=== PATIENT | female | born 1980 | race Caucasian/White ===

== ENCOUNTER 2016-11-01 21:40 | Inpatient (IN) | payer SELFPAY ==
--- NOTE | ~2016-11-01 | HP ---
History And Physical [place] [address] [place]. [address] NAME: YUMIKO PEREYRA : [birth year] STATUS : ADM IN [facility]#: [id number] AGE: 35 ADM/REG DATE : 11/02/16 MR#: [id number] REPORT SERV DATE: 11/02/16 DICTATED BY: MARIA D MENDOZA DATE: 11/02/16 REPORT STATUS : Draft TRANSCRIBED BY: MODLizandro DATE: 11/02/16 DATE OF ADMISSION: 11/02/2016 REASON FOR ADMISSION: Acute respiratory failure. HISTORY OF PRESENT ILLNESS: Ms. Pereyra is well known to our group from multiple hospitalizations for acute diabetic ketoacidosis. She has poor medical compliance, poor self-care, multiple hospitalizations, multiple emergency room visits because of her diabetes. She came in feeling poorly, complaining of pain but was not in DKA. She had an IV started, was being worked up. Went to the restroom and then was found passed out in the restroom with some stridor, was intubated and placed on mechanical ventilation. She has had no recent fever, chills, night sweats, or new respiratory tract infections. She has had no other specific complaints leading up to the intubation. PAST MEDICAL HISTORY: Significant for diabetic ketoacidosis, poor medical compliance, poor self-care, narcotic dependence. SOCIAL HISTORY: Significant for tobacco abuse of a pack a day. No alcohol abuse. REVIEW OF SYSTEMS: Review of 10 systems could not be obtained, but it was significant for what was noted above. PHYSICAL EXAMINATION: GENERAL: On exam, she appears older than stated age. Chronically ill-appearing, sedated, intubated on mechanical ventilation. HEENT: Normocephalic and atraumatic. NECK: Supple. No lymphadenopathy. No JVD. CHEST: Symmetric with good expansion bilaterally. She has coarse breath sounds. CARDIOVASCULAR: She has S1 and S2 which are regular rate and rhythm. ABDOMEN: Benign. She has no edema. No clubbing. No cyanosis. ASSESSMENT AND PLAN: 1. Respiratory failure. The patient has acute respiratory failure and appears to have been over self-medicated since she had come in with poor mental status and became worse when she was by herself in the restroom. She also had significant amount of pill fragments in her stomach when she had NG tube placed. With that in mind, she will stay on mechanical ventilation. She apparently had some transient stridor in the emergency department but whether she was having trouble with her secretions because of the over self medications, unclear, since airway was described as normal by the emergency department staff at the time of intubation. 2. She is hyperglycemic, so we started her on an insulin drip, though she is actually not in diabetic ketoacidosis at this time and we will monitor her metabolic status. She will be started on DVT and gastrointestinal prophylaxis. Care was discussed with the emergency department staff. There was no family available at this time. History And Physical [address] [place]. [address] NAME: YUIMKO PEREYRA : [birth year] STATUS : ADM IN [facility]#: [id number] AGE: 35 ADM/REG DATE : 11/02/16 MR#: [id number] REPORT SERV DATE: 11/02/16 DICTATED BY: MARIA D MENDOZA DATE: 11/02/16 REPORT STATUS : Draft TRANSCRIBED BY: GALILEA DATE: 11/02/16 THO/GALILEA Maria D Mendoza M.D. / [id number] CC: Danita Lentz MINDI
--- NOTE | ~2016-11-01 | OP ---
Record Of Operation [address] [place]. [address] NAME: YUMIKO MILAN : [birth year] STATUS : ADM IN PAT#: [id number] AGE: 35 ADM/REG DATE : 11/02/16 MR#: [id number] REPORT SERV DATE: 11/13/16 DICTATED BY: DAVID CHAVEZ DATE: 11/13/16 REPORT STATUS : Draft TRANSCRIBED BY: MODL DATE: 11/13/16 DATE OF PROCEDURE: 11/13/2016 PREOPERATIVE DIAGNOSES: 1. Respiratory failure. 2. Ventilator dependence. POSTOPERATIVE DIAGNOSES: 1. Respiratory failure. 2. Ventilator dependence. PROCEDURE: 1. Tracheostomy, #8 cuffed Shiley trach tube. 2. Rigid bronchoscopy. SURGEON: David Chavez M.D. ANESTHESIA: General. COMPLICATIONS: None. COUNTS: All counts correct following the procedure. ESTIMATED BLOOD LOSS: Minimal. PREOPERATIVE INFORMED CONSENT: We are unable to discuss risks and benefits of surgery with the patient's family because they are unavailable. Then two-doctor consent was performed due to medical necessity. DETAILS OF PROCEDURE: The patient was brought to the operating suite and placed on the operating table in the supine position. General endotracheal anesthesia was initiated through the previously existing endotracheal tube. The neck was cleaned, prepped and draped in the usual sterile fashion. A transverse incision was marked out and then using electrocautery, an incision was made with sharp dissection down through the subcutaneous tissues down to the strap muscles. The midline fascia was divided and the strap muscles were retracted laterally. The thyroid isthmus was dissected off the anterior tracheal wall and divided using electrocautery, taking care to cauterize all surrounding vessels. A peanut pusher was used to clean off the anterior tracheal wall and the space between the second and third tracheal ring was scored using electrocautery. A #15-blade scalpel was used to perform tracheostomy. An inferior flap was created using curved Arellano scissors and a stay suture was placed on the lower tracheal flap. The endotracheal tube was moved above the tracheostomy site and a #8 cuffed Shiley trach tube was placed through the tracheostomy site without difficulty. The endotracheal tube was removed. The tracheostomy tube was then reconnected to the Record Of [facility] [address] [facility] [place]. [address] NAME: YUMIKO MILAN : [birth year] STATUS : ADM IN PAT#: [id number] AGE: 35 ADM/REG DATE : 11/02/16 MR#: [id number] REPORT SERV DATE: 11/13/16 DICTATED BY: DAVID CHAVEZ DATE: 11/13/16 REPORT STATUS : Draft TRANSCRIBED BY: GALILEA DATE: 11/13/16 ventilator and the patient was noted to have good CO2 return and good breath sounds bilaterally. The tracheostomy tube was then sutured to the skin using 2-0 silk suture and a Velcro trach tie. The patient was taken to the Intensive Care Unit in stable condition. Using a GlideScope, intubating scope to visualize the larynx, she is noted to have severe aryepiglottic fold edema. Using a 0-degree, Santoyo rachel was placed and used to take pictures of the glottic level, noted to have severe posterior arytenoid edema and aryepiglottic fold edema, the subglottic trachea noted to have some anterior subglottic edema. 1 cm below the cords, the trachea appeared normal, down to the level of the trach site, the scope was then removed. The patient was taken to medical intensive care unit in stable condition. JJames/GALILEA David Chavez M.D. / [id number] CC: Danita Lentz MINDI
--- NOTE | ~2016-11-01 | CN ---
Consultation Report [place] [id number] [place]. [address] NAME: YUMIKO PEREYRA : [birth year] STATUS : ADM IN [facility]#: [id number] AGE: 35 ADM/REG DATE : 11/02/16 MR#: [id number] REPORT SERV DATE: 11/07/16 DICTATED BY: DAVID CHAVEZ DATE: 11/06/16 REPORT STATUS : Draft TRANSCRIBED BY: MODL DATE: 11/06/16 CONSULTATION DATE OF CONSULTATION: 11/06/2016 REASON FOR CONSULTATION: Stridor. HISTORY OF PRESENT ILLNESS: Ms Pereyra is a 35-year-old female, admitted to the hospital on 11/02/2016 due to acute respiratory failure. She has had multiple hospitalizations for acute diabetic ketoacidosis, poor medical compliance, poor self-care, multiple hospitalizations. She was in the emergency room when in the middle of being worked up went to the restroom and was found passed out in the restroom with stridor and was intubated and placed on mechanical ventilation. Despite attempt to extubate during hospitalization, most recent extubation resulted in acute shortness of breath and stridor requiring re-intubation. I have been called to see the patient regarding tracheostomy for long-term ventilator management. PAST MEDICAL HISTORY: Diabetic ketoacidosis, poor medical compliance, poor self-care, and narcotic dependence, and hepatitis C. SOCIAL HISTORY: Tobacco abuse of 1 pack a day. No alcohol abuse, but positive for narcotic dependence and abuse. PHYSICAL EXAMINATION: GENERAL: She has been intubated, sedated, ill appearing. HEENT: Both ears are clear. Nose is clear. ABDOMEN: Soft. Oral cavity/oropharynx; endotracheal tube is in place. NECK: Supple. No palpable adenopathy or masses. No thyromegaly. IMPRESSION: Stridor postextubation likely secondary to vocal cord edema. RECOMMENDATIONS: Tracheostomy. PLAN: We will discuss with patient's family to see if they want to proceed with tracheostomy, and we will schedule at some point in the future. SPARKLE/GALILEA David Chavez M.D. Consultation Report [place] [id number] [address] NAME: YUMIKO PEREYRA : [birth year] STATUS : ADM IN PAT#: [id number] AGE: 35 ADM/REG DATE : 11/02/16 MR#: [id number] REPORT SERV DATE: 11/07/16 DICTATED BY: DAVID CHAVEZ DATE: 11/06/16 REPORT STATUS : Draft TRANSCRIBED BY: GALILEA DATE: 11/06/16 / [id number] CC: Danita Lentz
--- NOTE | ~2016-11-01 | IDS ---
Interim Discharge Summary [facility] [address] [place]. [address] NAME: YUMIKO MILAN : 78 STATUS : ADM IN PAT#: [id number] AGE: 35 ADM/REG DATE : 11/02/16 MR#: [id number] REPORT SERV DATE: 11/23/16 DICTATED BY: ARIELLE MULLEN DATE: 11/23/16 REPORT STATUS : Draft TRANSCRIBED BY: MODL DATE: 11/23/16 ADMISSION DATE: 11/02/2016 DISCHARGE DATE: DATE OF LAST INTERIM DISCHARGE SUMMARY: 11/16/2016. DATE OF THIS INTERIM DISCHARGE SUMMARY: 11/23/2016. INTERIM DIAGNOSES: 1. Acute hypoxic respiratory failure. 2. Laryngeal edema with stridor. 3. Methicillin resistant staphylococcus aureus pneumonia. 4. Relative adrenal insufficiency. 5. Bipolar disorder with anxiety attacks and acute agitation. 6. Type 2 diabetes. 7. Chronic obstructive pulmonary disease. 8. Now chronic respiratory failure requiring tracheostomy placement by Dr. Love on 11/13/2016. CONSULTS: 1. ENT. 2. Critical Care Medicine. 3. Psychiatry. PROCEDURES: 1. Intubation on 11/02/2016. 2. Intubation on 11/04/2016. 3. Intubation on 11/08/2016. 4. Tracheostomy on 11/13/2016. ICU COURSE: Please see dictated H and P as well as interim discharge summary by Dr. Champion for full patient presentation and history. BRIEF SUMMARY: This is a 35-year-old white female with a past medical history of type 1 diabetes with medication noncompliance and recurrent admissions for DKA, who initially presented to the hospital back at the beginning of October with acute respiratory failure requiring intubation. She eventually grew MRSA, had infiltrate on chest x-ray, and completed a course for an MRSA pneumonia. Her hospital course has been complicated by failure to wean from the ventilator. She was extubated and re-intubated multiple times secondary to stridor and laryngeal edema of unknown etiology. She required several rounds of Decadron and eventually required a tracheostomy for failure to wean from the ventilator. Since I took over the patient at the beginning of the week, she has actually done very well. From a weaning standpoint, we have been able to maintain her on a trach collar continuously for the last 24 hours and are continuing to do so in the hopes that we do not have to put her back on the ventilator. If she remains on a trach collar for the next several days, we could potentially think about decannulating her at that point. She is also having a swallow Interim Discharge Summary [place] [id number] [place]. [address] NAME: YUMIKO MILAN : [birth year] STATUS : ADM IN PAT#: [id number] AGE: 35 ADM/REG DATE : 11/02/16 MR#: [id number] REPORT SERV DATE: 11/23/16 DICTATED BY: ARIELLE MULLEN DATE: 11/23/16 REPORT STATUS : Draft TRANSCRIBED BY: MODL DATE: 11/23/16 study today to see if she is able to the eat around her trach. Currently, she is using a Passy-Savita valve and talking to us. The other problems during her ICU course have included relative adrenal insufficiency with a random cortisol level of 0.7. She has been maintained on hydrocortisone, and I have been weaning that down. Currently, she is on 50 mg twice daily, and we can probably further decrease that dose tomorrow. She also remains on Levemir for her diabetes and has not had an episode of diabetic ketoacidosis during this hospital stay. The main issue I have been dealing with this week has been acute agitation with anxiety. When I inherited her, she was still on propofol, Precedex, and fentanyl with acute agitation breakthroughs despite this. Since that time, I have been able to wean her off all IV medications, and currently, she is being maintained on p.o. Seroquel with IV Haldol and Ativan p.r.n. She seems to be doing very well on this regimen and has been calm for the last several days. I also got Psychiatry to see her to assist in management of her agitation and bipolar disorder, they are assisting with management of her medications, and she at least right now plans on potentially following up with them as an outpatient. I have put in for an IMCU bed, and she is awaiting transfer over there as she has been doing well and is fairly stable. Again, if we can get her decannulated, she could potentially go to the floor if an IMCU bed does not open up in time. I have also been getting Physical Therapy to start seeing her and working with her. The oncoming operational risk consultant will take over and care for the patient. If you have any questions please call. ÁNGEL/GALILEA Arielle Mullen MD / [id number] CC: Danita Lentz
--- NOTE | ~2016-11-01 | CN ---
Consultation Report [facility] [address] [place]. [address] NAME: YUMIKO MILAN : [birth year] STATUS : ADM IN PAT#: [id number] AGE: 35 ADM/REG DATE : 11/02/16 MR#: [id number] REPORT SERV DATE: 11/22/16 DICTATED BY: KEENAN MUSTAFA DATE: 11/22/16 REPORT STATUS : Draft TRANSCRIBED BY: MODLizandro DATE: 11/22/16 PSYCHIATRIC CONSULTATION DATE OF CONSULTATION: 11/22/2016 I reviewed the patient's current and old medical records. I discussed the patient's status with her nurse. I discussed the patient's history with her sister, Xin. HISTORY OF PRESENT ILLNESS: She was admitted with an acute onset of respiratory failure. She was intubated and later, she received a tracheostomy. I was consulted at this time because yesterday she had a period of severe agitation. The patient now says that she thinks she was having an anxiety attack at that time. PAST PSYCHIATRIC HISTORY: She has had multiple admissions with poorly controlled diabetes mellitus, associated with noncompliant behavior. I previously saw her in consultation on 08/24/2015 when she was depressed. I started her on Zoloft at that time. She now tells me that she was taking Zoloft 100 mg t.i.d. prior to this admission, and it was of questionable efficacy. She also tells me that she has had ups and downs of mood over the years. As well as depressive episodes, she has had periods of increased enthusiasm and hope as well as bouts of insomnia, where she can go without sleep for days at a time. FAMILY HISTORY: She reports that there are multiple members on both sides of her family with bipolar disorder or other mood issues. SOCIAL HISTORY: She lives with her stepmother. MENTAL STATUS: She was reading a [email or web address] novel when I first approached. She was calm and cooperative. She smiled appropriately. Her mood was mildly anxious. Her affect was full and appropriate. Her thinking was logical. She had no delusions. She had no hallucinations. She was oriented to time, place, and person. DIAGNOSIS: Bipolar disorder, not otherwise specified, with occasional panic attacks. RECOMMENDATIONS: When she is again able to take p.o., we should continue her current Seroquel. A dose adjustment to 100 mg a.m. and 200 mg q.h.s. might be considered. We should continue the Zoloft 100 mg daily. She is now agreeable to seeking followup outpatient, psychiatric care at a local mental health clinic after her discharge from the hospital. If she remains n.p.o. and she experiences yet another episode of agitation, we should continue to use IV Ativan or Precedex at the discretion of the attending physician. I will follow during this hospitalization. ANGELO/GALILEA Consultation Report [place] [id number] [facility] [address] NAME: YUMIKO MILAN : [birth year] STATUS : ADM IN PAT#: [id number] AGE: 35 ADM/REG DATE : 11/02/16 MR#: [id number] REPORT SERV DATE: 11/22/16 DICTATED BY: KEENAN MUSTAFA DATE: 11/22/16 REPORT STATUS : Draft TRANSCRIBED BY: GALILEA DATE: 11/22/16 Keenan Mustafa M.D. / [id number] CC: Danita Lentz Mindi
--- NOTE | ~2016-11-01 | OP ---
Record Of [facility] [address] [address] NAME: YUMIKO MILAN : [birth year] STATUS : ADM IN PAT#: [id number] AGE: 35 ADM/REG DATE : 11/02/16 MR#: [id number] REPORT SERV DATE: 11/04/16 DICTATED BY: SAMARIA CHAMPION DATE: 11/04/16 REPORT STATUS : Draft TRANSCRIBED BY: MODL DATE: 11/04/16 DATE OF PROCEDURE: 11/04/2016 This is a 35-year-old patient who went into respiratory distress with sudden onset of stridor, required emergent intubation. Code Blue was called. CPR was in progress upon my arrival. The patient was coded for 2 minutes, received 1 amp of epi with return of circulation. The patient was intubated during the code. /MODL Samaria Champion M.D. / [id number] CC: Danita Lentz MINDI
--- NOTE | ~2016-11-01 | EHP ---
ER History and Physical [address] [place]. [address] NAME: YUMIKO MILAN : [birth year] STATUS : ADM IN PAT#: [id number] AGE: 35 ADM/REG DATE : 11/02/16 MR#: [id number] REPORT SERV DATE: 11/02/16 DICTATED BY: BEAR SALMON DATE: 11/02/16 REPORT STATUS : Draft TRANSCRIBED BY: MODLizandro DATE: 11/02/16 CHIEF COMPLAINT: The patient was seen in the ER for complaints of shortness of breath. See the paper chart for full history and details of the patient's initial ER visit. HISTORY OF PRESENT ILLNESS: During the patient's time here, the patient was given racemic epi and one albuterol nebulizer with improvement of her stridor and then she had. Upon arrival here, the patient's workup here was essentially negative and discussed this with the patient. He was agreeable to discharge later. She stated that she felt so much better than she did on arrival. We discussed her pulmonary regimen at home including her Symbicort and other inhalers and she was agreeable to discharge. Sometime after, I left the room. The patient went to the restroom. Just prior to discharge, she returned to her room where she was found by a tech to be lethargic and nearly obtunded. The ER staff was summoned. The patient was nearly apneic with evidence of cyanosis. I responded to the room, saw the patient cyanotic with bag-valve mask, resuscitation under way. Given the patient's digit at the restroom as precipitating her just prior to this event. I was suspicious that the patient possibly had used her IV access or ingested substance. Because of the sudden change, Narcan was given to the patient IV while we were preparing to intubate the patient. With some improvement in the patient's mental status, the Narcan did seem to improve as she began to spontaneously breathe as well as thrashing about; however, just after this, the patient began to have what appeared to be seizure-like activity. Ativan 2 mg was given and given the patient's compromised respiratory status, rapid sequence intubation was done. See the paper chart for full details of rapid sequence intubation. Once the patient was intubated, she was sedated and placed on mechanical ventilation where she remained stable. Discussed this case with Dr. Mendoza, the on-call apparel merchandiser. He has agreed to admit the patient. My suspicion at this point was that the patient possibly has a drug overdose. Given that the Narcan reversed her symptoms, her urine drug screen initially here was negative and her sudden apnea and reversal with Narcan. Please document greater than 35 minutes of critical care time and stabilization of the patient, discussion with admitting physician, review of data and planning for admission outside of any billable procedures. YUKI/GALILEA Bear Salmon DO / [id number] CC: ER History and Physical [address] [address] NAME: YUMIKO MILAN : [birth year] STATUS : ADM IN [facility]#: [id number] AGE: 35 ADM/REG DATE : 11/02/16 MR#: [id number] REPORT SERV DATE: 11/02/16 DICTATED BY: BEAR SALMON DATE: 11/02/16 REPORT STATUS : Draft TRANSCRIBED BY: GALILEA DATE: 11/02/16 Danita Lentz
--- NOTE | ~2016-11-01 | OP ---
Record Of Operation [facility] [address] [place]. [address] NAME: YUMIKO MILAN : 78 STATUS : ADM IN [facility]#: [id number] AGE: 35 ADM/REG DATE : 11/02/16 MR#: [id number] REPORT SERV DATE: 11/08/16 DICTATED BY: LOGAN BORREGO DATE: 11/08/16 REPORT STATUS : Draft TRANSCRIBED BY: MODL DATE: 11/08/16 DATE OF PROCEDURE: 11/08/2016 PROCEDURE: Endotracheal intubation. PREOPERATIVE DIAGNOSIS: Post extubation stridor. POSTOPERATIVE DIAGNOSIS: Post extubation stridor. PROCEDURE NOTE: The patient had acute onset of stridor this evening, she sat up and had stridor, her oxygen saturations was in the 60s, we then started [id number] ventilation, due to her worsening distress, we immediately intubated the patient, we used a straight blade and I obtained a grade 3 view, there was significant amount of edema and was not able to obtain proper position for direct laryngoscopy intubation. We then conducted a GlideScope intubation, I used a 7.0 ET tube, there was some difficulty due to swelling even with GlideScope to get the ET tube through the vocal cords, however, we were then able to do that and we had change of the CO2 monitor along with condensation in the ET tube along with equal breaths bilaterally. This was secured. 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 HFQ/GALILEA Logan Borrego MD / [id number] CC: Danita Lentz MINDI
--- NOTE | ~2016-11-01 | IDS ---
Interim Discharge Summary [facility] [address] [place]. [address] NAME: YUMIKO MILAN : 78 STATUS : ADM IN [facility]#: [id number] AGE: 35 ADM/REG DATE : 11/02/16 MR#: [id number] REPORT SERV DATE: 11/16/16 DICTATED BY: SAMARIA CHAMPION DATE: 11/16/16 REPORT STATUS : Draft TRANSCRIBED BY: MODL DATE: 11/16/16 ADMISSION DATE: 11/02/2016 DISCHARGE DATE: For details of patient's admission please see dictation from Dr. Brooks Dsouza and Dr. Hima Mendoza dated 11/02/2016. HISTORY OF PRESENT ILLNESS: Briefly, this is a 35-year-old patient with no multiple admissions to this facility for acute diabetic ketoacidosis and medical noncompliance, who was seen in the emergency room on 11/02/2016. She was not found to be in DKA; however, according to Dr. Dsouza's note she was about ready to be discharged; however, she was found obtunded in the bathroom in the ER, and was cyanotic and apneic, and was intubated without difficulty. There was some suspicion that the patient may have had access to drugs probably of her own, but this was never really substantiated. The patient then was admitted to the MICU, and seemed to do well, and was then excavated on 11/04/2016 in the morning, and by the afternoon, around 0400 hours or 0430 hours, she developed what was described as stridor and had to be reintubated. During intubation, the patient was noted to have some slight vocal cord swelling and was treated with Decadron, and then apparently another trial of extubation was initiated on 11/08/2016 with again development of stridor requiring re-intubation. Dr. Love, ENT, saw the patient and it was agreed that the patient would need a tracheostomy. The patient underwent this procedure on 11/13/2016 with minimal blood loss, and a #8 endo- tracheostomy tube was placed that was cuffed. Dr. Love visualized the larynx and reported severe aryepiglottic fold edema. Subglottic trachea noted to also have some anterior subglottic edema. The area below the cords was also examined and did not reveal any type of subglottic stenosis. The patient now is currently trached and is able to be off the ventilator during the day and has been on the ventilator at night. I had a discussion with Dr. Love on the evening of 11/15/2016 as to further plan for this patient. Dr. Love feels that it would be prudent to keep the #[address] for few more days for her tract to form and then changed out the trach to a cuffless #6 Shiley. Once this is accomplished, the patient can undergo a swallowing evaluation, and then hopefully can be able to eat and may be not need placement of a PEG tube. Currently, she has a Dobbhoff tube, which we will try and keep in place so that she gets adequate nutrition. The plan is to eventually get her off to [facility], teach trach care, and Dr. Love would like to see her back in one month. The etiology of this presentation is not entirely clear. In regard to diabetes mellitus, she has been tolerating tube feeds. She has not been in DKA. We are on a sliding insulin scale, and we are adding Levemir at 5 units in the morning and 10 units in the evening, and the patient of course is a type 1 diabetic. Other complications for noncompliance with insulin and care of her diabetes include diabetic neuropathy, for which she is on Neurontin and then gastroparesis. Chronic anemia. Iron was 24, TIBC was not elevated at 307, B12 and folate were within normal limits. I believe her anemia is multifactorial. She has not required any blood transfusion, but we will decrease the number of blood draws since it does not appear to be necessary to do daily blood work on her, so her next blood work will be on Saturday morning on 11/18/2016. Interim Discharge Summary [place] [id number] [facility] [place]. [address] NAME: YUMIKO MILAN : 78 STATUS : ADM IN [facility]#: [id number] AGE: 35 ADM/REG DATE : 11/02/16 MR#: [id number] REPORT SERV DATE: 11/16/16 DICTATED BY: SAMARIA CHAMPION DATE: 11/16/16 REPORT STATUS : Draft TRANSCRIBED BY: MODL DATE: 11/16/16 Hepatitis C, untreated. The patient also was found to have an infiltrate on chest x-ray and sputum culture grew out MRSA pneumonia, and she was treated with vancomycin. Vancomycin was discontinued and she has remained stable with regard to her respiratory status; however, there is still a faint infiltrate at the right base which probably needs to be followed and further work up if it does not totally resolved. She more than likely has COPD because she smokes and she continues on bronchodilator protocol. Problems with severe agitation and this has been the case even on her previous admissions. It takes a lot of medications to sedate her and currently she is on Precedex, Diprivan, and fentanyl; and she is still awake, and on all these medication she becomes extremely agitated and is at danger for pulling out her tracheostomy tube. She has been seen by Dr. Fu back in 2014 for any psychiatric issues, and his evaluation was that she had depressive disorder with prominent situational and characterological factors. Zoloft was added. She currently is on Seroquel and Zoloft, so I have asked the pharmacist in the unit to see what else we can add to get her off all of these drips, and I would like to avoid benzodiazepines for obvious reasons in this patient. She is not compliant with medication and would be at danger for an overdose, but we may have to use antipsychotics such as Haldol and Risperdal, and cut back on the Zoloft, but we are in the process of trying to evaluate that. Of note, during the second time the patient was intubated, she did go into a PEA arrest and required brief period of CPR and epinephrine, and return of circulation was very easily re- established. I have been updating the patient's sister whose contact information is in front of the chart and would like to be involved in her discharge planning and seems very genuinely interested in her welfare, so please include her in any discharge plans I have spoken to her almost every day this week and she is aware of the plan to send the patient eventually to [facility]. /GALILEA Samaria Champion M.D. / [id number] CC: Danita Lentz
--- NOTE | ~2016-11-01 | OP ---
Record Of Operation [facility] [address] [place] [address] NAME: YUMIKO MILAN : 78 STATUS : ADM IN PAT#: [id number] AGE: 35 ADM/REG DATE : 11/02/16 MR#: [id number] REPORT SERV DATE: 11/04/16 DICTATED BY: SAMARIA CHAMPION DATE: 11/04/16 REPORT STATUS : Draft TRANSCRIBED BY: MODL DATE: 11/04/16 DATE OF PROCEDURE: 11/04/2016 PROCEDURE: Intubation. REASON: Stridor and respiratory arrest. DESCRIPTION OF PROCEDURE: The patient was already intubated once in the emergency room and was reported to have stridor; however, no vocal cord edema was reported when she was intubated in the ER. She was then transported to the MICU and had no leak on evaluation for possible extubation on 11/03/2016. She received several doses of Decadron and one dose of Lasix, and had a good cuff leak today on 11/04/2016 and was extubated at 10 o'clock. At approximately 2:25 p.m., the patient developed stridor again, stopped breathing, and required emergent re-intubation. She was bagged with 100% oxygen, monitored throughout the entire procedure, maintained a saturation above 89%. She received 5 mL of Diprivan and 20 mg of IV etomidate, and was intubated using a glide scope and a #7 endotracheal tube. At this point, the patient's vocal cords did appear edematous. No other pathology was seen. Intubation was successful on the first attempt. Bilateral breath sounds were heard, and with CO2 sensor changed appropriate color from blue to yellow. Placement of the tube was confirmed with chest x-ray. The plan will be to continue Decadron and have ENT see the patient in the morning. Family was notified by phone. /GALILEA Samaria Champion M.D. / [id number] CC: Hima Mendoza M.D.
--- NOTE | ~2016-11-01 | IDS ---
Interim Discharge Summary [facility] [address] [address] NAME: YUMIKO MILAN : 78 STATUS : ADM IN PAT#: [id number] AGE: 35 ADM/REG DATE : 11/02/16 MR#: [id number] REPORT SERV DATE: 11/25/16 DICTATED BY: STANFORD ENGLISH IV DATE: 11/25/16 REPORT STATUS : Draft TRANSCRIBED BY: GALILEA DATE: 11/25/16 ADMISSION DATE: 11/02/2016 DISCHARGE DATE: ADDENDUM: This is an addendum to the interim discharge summary completed by Dr. Bruce Mullen on 11/23/2016. The patient continued to do very well on trach collar with a strong voice with trach lumen occlusion. The tracheostomy tube was removed on 11/24/2016. The patient was observed for more than 24 hours with excellent strong voice with occlusion of the tracheostomy stoma. She noted clinical improvement. She had passed her swallow evaluation and is taking oral quite well. The patient had intermittent high blood pressures which will need to be followed with institution of chronic medications if indicated. She likely has a component of COPD with previous tobacco use and was instituted on bronchodilator medications. Her diabetes was under excellent control on her current regimen. She will be transferred to the floor predominantly for disposition because of a difficult home situation. Psychiatry continues to follow the patient and she is done very well on her current dosing of Seroquel. Hospitalist service is aware and will be asked to assume primary responsibility. Her IV hydrocortisone was discontinued because of a very low cortisol level documented by Dr. Mullen. She will be placed on Cortef which I would continue for two more days and discontinue for pressure is adequate. VINCE/GALILEA Stanford English IV, M.D. / [id number] CC: Danita Lentz Mindi
--- NOTE | ~2016-11-01 | DS ---
Discharge Summary [facility] [address] [place]. [address] NAME: YUMIKO MILAN : 78 STATUS : DIS IN PAT#: [id number] AGE: 35 ADM/REG DATE : 11/02/16 MR#: [id number] REPORT SERV DATE: 12/03/16 DICTATED BY: PASCUAL URRUTIA DATE: 11/29/16 REPORT STATUS : Draft TRANSCRIBED BY: GALILEA DATE: 11/29/16 ADMISSION DATE: 11/02/2016 DISCHARGE DATE: 11/29/2016 REASON FOR ADMISSION: This was a 35-year-old female who was admitted with acute respiratory failure. DISCHARGE DIAGNOSES: 1. Status post respiratory failure. 2. Status post MRSA pneumonia. 3. Status post tracheostomy. 4. Diabetes type 1. 5. Tobacco abuse. 6. Bipolar with panic attacks. 7. Normal sinus tachycardia. 8. Relative adrenal insufficiency. HOSPITAL COURSE: Please see admission H and P from Hima Mendoza on 11/02/2016 and interim discharge summaries from Calli Champion on 11/16/2016 and Bruce Mullen on 11/23/2016 and Alex English on 11/25/2016 for full details on hospital stay and admission. 1. Status post respiratory failure. The patient was admitted with acute respiratory failure on 11/02 requiring intubation. She would have infiltrate on chest x-ray and eventually grew out MRSA and will complete antibiotic course for MRSA pneumonia. Her ICU stay was complicated by failure to be able to wean from the ventilator. She had been extubated and reintubated multiple times secondary to stridor in the laryngeal edema of unclear etiology. She required several rounds of Decadron and was eventually required a tracheostomy secondary to failure to wean from ventilator and eventually she was able to be weaned even from tracheostomy and the tracheostomy tube was removed on 11/24. She has passed swallow study. She is able to talk with strong voice, eating successfully, and we will plan to have home health care make a couple of visits related to her tracheostomy stoma site care as she goes home. Also, of note, we have weaned the patient off oxygen altogether. 2. Diabetes type 1. The patient with long history of multiple admissions for DKA here at the hospital. Even on the floor she has had struggles with her blood sugar. She is noncompliant with diet. The other night, on midnight of the perhaps risk assessor of , she ate a [employer] biscuit in the middle of the night. Her blood sugar went up greater than 600. She was given 5 units of sliding scale insulin and then given 6 units of IV insulin after calling hospitalist for orders and this brought her sugar down to around 200 pre-breakfast. She then got her scheduled 9 units of NovoLog and then sliding scale 4 units on top of that, and when I came in to see the patient, she was actually comatose and diaphoretic. Checked her blood sugar and it was undetectable, less than 10. Gave her half amp of D50, which immediately brought her sugar up to 93 and she immediately woke up and began talking with no deficits and no seizures during the event. With her being type 1 and getting that large amount of insulin without eating that was the reason for her drop in blood sugar at home. She takes NovoLog 10 units with meals and sliding scale and uses Toujeo 40 units at Discharge Summary [address] [address] NAME: YUMIKO MILAN : 78 STATUS : DIS IN PAT#: [id number] AGE: 35 ADM/REG DATE : 11/02/16 MR#: [id number] REPORT SERV DATE: 12/03/16 DICTATED BY: PASCUAL URRUTIA DATE: 11/29/16 REPORT STATUS : Draft TRANSCRIBED BY: GALILEA DATE: 11/29/16 bedtime, so we had her on similar regimen here at the hospital. No further hypoglycemic events after that episode and blood sugars better controlled today. So we will resume her home regimen at discharge. 3. Bipolar with panic attacks. The patient seen by Dr. Fu here at the hospital and he prescribed Seroquel for her, which has been working effectively. He sent her home with a prescription for Seroquel 200 mg p.o. at bedtime and follow up with Kun Swan. 4. Normal sinus tachycardia. The patient having a consistent heart rate running in the 120s while here at the hospital. Started her on metoprolol 25 mg p.o. b.i.d., and successfully got her heart rate down to the 90s. We will continue that at discharge. She is not having any chest pain, and she is normal sinus rhythm on the monitor. 5. Relative adrenal insufficiency. The patient identified with relative adrenal insufficiency during her stay in ICU. We have been weaning down her hydrocortisone. Currently, we have her on 10 mg q.a.m. and 5 mg q.p.m. We will continue that for two more days and continue weaning her off it in the next seven days. DISCHARGE CONDITION: Stable. DISCHARGE MEDICATIONS: 1. Zocor 20 mg p.o. at bedtime. 2. Prilosec 20 mg p.o. daily. 3. Neurontin 300 mg p.o. q.a.m. and 600 mg p.o. at bedtime. 4. Zoloft 100 mg p.o. daily. 5. Hydrocortisone 10 mg q.a.m. and 5 mg q.p.m. x2 days, then 5 mg p.o. q.a.m. and 2.5 mg q.p.m. x2 days, then discontinue. 6. NovoLog sliding scale level 1. 7. NovoLog 10 units before meals t.i.d. 8. Lopressor 25 mg p.o. b.i.d. 9. Toujeo 40 units subcu at bedtime. DISCHARGE PLAN: The patient is discharged home with home health for diabetes education and tracheostomy stoma care, and we will have her follow up with primary care, Tessa Pérez in one to two weeks. TDR/MODL Pascual Urrutia APN / [id number] CC: Danita Mccollum,TESSA Mendoza M.D. [facility]
--- NOTE | ~2016-11-01 | OP ---
Record Of Operation [facility] [address] [place] [address] NAME: YUMIKO MILAN : 78 STATUS : ADM IN PAT#: [id number] AGE: 35 ADM/REG DATE : 11/02/16 MR#: [id number] REPORT SERV DATE: 11/02/16 DICTATED BY: BEAR DSOUZA DATE: 11/02/16 REPORT STATUS : Draft TRANSCRIBED BY: GALILEA DATE: 11/02/16 DATE OF PROCEDURE: PROCEDURE: Central line placement. INDICATION: Poor peripheral access. This patient's right subclavian vein was selected as the site of insertion using a ChloraPrep dressing with ChloraPrep, the site was cleansed and sterilized and using a sterile technique, the patient was draped in a sterile fashion. Using Seldinger technique, the right subclavian vein was accessed with one attempt with good nonpulsatile blood returned, guidewire was threaded with ease and the vessel was cannulated and a triple-lumen catheter was placed over a guidewire. The guidewire was removed intact. The ports were then aspirated and flushed and the catheter was sutured into place. A 15 cm sterile dressing applied. The patient tolerated the procedure well. No immediate complication. Postop chest x-ray shows no pneumothorax with good central line placement with the tip in the cavoatrial junction. ESTIMATED BLOOD LOSS: Less than 5 mL. YUKI/GALILEA Bear Dsouza DO / [id number]
[2016-11-01 21:33] LABS: BASOPHILS 1.1 %; EOSINOPHILS 1.9 %; EOSINOPHILS ABSOLUTE 0.17 10/3/uL (0.0-0.53); ER CBC TAT 0 Hrs 07 Mins; HEMATOCRIT 29.1 % (36.0-48.0); HEMOGLOBIN 8.7 g/dL (12.0-16.0); IMMATURE GRANULOCYTES 0.2 %; IMMATURE GRANULOCYTES ABSOLUTE 0.02 10/3/uL (0.0-0.11); LYMPHOCYTES 30.7 %; LYMPHOCYTES ABSOLUTE 2.68 10/3/uL (0.67-4.30); MANUAL DIFF NO %; MEAN CORPUS HGB CONC 29.9 g/dL (32.0-36.0); MEAN CORPUSCULAR HEMOGLOB 26.4 pg (26.0-34.0); MEAN CORPUSCULAR VOLUME 88.2 fL (80-100); MEAN PLATELET VOLUME 9.1 fL (9.2-13.0); MONOCYTES 7.4 %; MONOCYTES ABSOLUTE 0.65 10/3/uL (0.21-1.20); NEUTROPHILS 58.7 %; NEUTROPHILS ABSOLUTE 5.12 10/3/uL (2.02-8.40); PLATELET COUNT 491 10/3/uL (150-400); RBC DISTRIBUTION WIDTH 14.6 % (12.0-16.0); WHITE BLOOD CELLS 8.7 10/3/uL (4.5-10.5)
[~2016-11-01 21:40] MED LIST: *UNABLE1; *UNABLE2; *UNABLE3; CHOLESTEROL RX PO; DIABET1.25 PO; EXCEDRIN MIGRA1 EAC1 PO; FERROUS SULF325 M1 PO; FISH-EPA1000 MG PO; FOLIC PO; GLUCOPHAGE1000 MG PO; GOODY'S EX-STR1 EAC1 PO; GOODY'S HEADAC1 EACH PO; HUMALOG SC; LANTUS SC; LEVEMIR SC; MULTIVIT/MIN PO; MVI PO; NEUR300 PO; NOVOLOG SC; PERCOCET1 TA4 PO; POTASSIUM OTC PO; PRILO PO; PROAIR HFA INH; PROVENTSOL INH; PROVHFA INH; REG PO; REG5 PO; TOUJEO SC; UNKNOWN MEDS; VICODINTAB PO; ZOCOR20 PO; ZOL100 PO; ZOL50 PO; [UNRECOGNIZED DRUG - REMARK] PO
[2016-11-01 21:49] LABS: A/G RATIO 0.8 (0.7-1.9); ALBUMIN 3.4 G/DL (3.5-5.0); ALKALINE PHOSPHATASE 141 U/L (45-117); BUN (BLOOD UREA NITROGEN) 22 MG/DL (6-23); CALCIUM, SERUM 8.5 MG/DL (8.5-10.4); CHLORIDE, SERUM 102 MMOL/L (96-112); CO2 (CARBON DIOXIDE) 27 MMOL/L (24-34); CREATININE 0.69 MG/DL (0.55-1.02); GFR AFRICAN AMERICAN 130 ML/MIN (>=60); GFR NON AFRICAN AMERICAN 112 ML/MIN (>=60); GLOBULIN 4.2 G/DL (2.5-4.1); GLUCOSE, SERUM 255 MG/DL (60-99); LACTATE 3.2 MMOL/L (0.3-2.4); POTASSIUM, SERUM 3.8 MMOL/L (3.5-5.3); SALICYLATE 4.4 MG/DL (-); SGOT(AST) 30 U/L (5-40); SGPT(ALT) 38 U/L (5-65); SODIUM, SERUM 140 MMOL/L (135-148); TOTAL BILIRUBIN 0.2 MG/DL (0-1.2); TOTAL PROTEIN 7.6 G/DL (6.0-8.5)
[2016-11-01 21:50] LABS: ACETAMINOPHEN LEVEL (TYLENOL) < 2.0 MCG/ML (10.0-20.0); ALCOHOL < 10 MG/DL (0)
[2016-11-01 22:01] LABS: PROCALCITONIN 0.09 ng/mL (<0.5)
[2016-11-01 22:23] LABS: BE (BASE EXCESS) -3.1 MEQ/L (0 +/- 2.5); CARBOXYHEMOGLOBIN 4.8 % (0-3); HCO3 (ACTUAL BICARBONATE) 22.3 MEQ/L (23-27); HEMOBLOGIN CONTENT 9.1 G/DL (12-16); INSTRUMENT SERIAL # 8087; METHEMOGLOBIN 0.4 % (0-3); O2 CONTENT 12.4 VOL% (18-24); OPERATOR ID 17589; PCO2 (CO2 TENSION) 41 MMHG (35-45); PO2 (O2 TENSION) 163 MMHG (79-93); SAMPLE Arterial; pH 7.35 (7.37-7.43)
[2016-11-01 22:25] LABS: INTERNATIONAL NORMAL RATI 0.9 UNITS (-)
[2016-11-01 22:27] LABS: PARTIAL THROMBO TIME 20.5 SEC (22.5-37.2)
[2016-11-02 00:12] LABS: AMPHETAMINES (NOT ORD) NEG (NEG); BARBITURATES (NOT ORDERED NEG (NEG); BENZODIAZEPINES (NOT ORD) NEG (NEG); CANNABINOIDS (THC) POS (NEG); COCAINE (NOT ORDERED) NEG (NEG); OPIATES NEG (NEG); PHENCYCLIDINE(PCP) NEG (NEG); TRICYCLICS NEG (NEG)
[2016-11-02 00:39] LABS: AMPHETAMINES (NOT ORD) NEG (NEG); BARBITURATES (NOT ORDERED NEG (NEG); BENZODIAZEPINES (NOT ORD) NEG (NEG); CANNABINOIDS (THC) POS (NEG); COCAINE (NOT ORDERED) NEG (NEG); OPIATES NEG (NEG); PHENCYCLIDINE(PCP) NEG (NEG); TRICYCLICS NEG (NEG)
[2016-11-02] MEDS ORDERED: *UNABLE3 (01:00)
[2016-11-02 02:07] LABS: AMPHETAMINES (NOT ORD) NEG (NEG); BARBITURATES (NOT ORDERED NEG (NEG); BENZODIAZEPINES (NOT ORD) POS (NEG); CANNABINOIDS (THC) POS (NEG); COCAINE (NOT ORDERED) NEG (NEG); OPIATES NEG (NEG); PHENCYCLIDINE(PCP) NEG (NEG); TRICYCLICS NEG (NEG)
[2016-11-02 02:37] LABS: BASOPHILS 0.6 %; BASOPHILS ABSOLUTE 0.05 10/3/uL (0.0-0.16); EOSINOPHILS 1.2 %; EOSINOPHILS ABSOLUTE 0.09 10/3/uL (0.0-0.53); HEMOGLOBIN 7.5 g/dL (12.0-16.0); IMMATURE GRANULOCYTES 0.3 %; IMMATURE GRANULOCYTES ABSOLUTE 0.02 10/3/uL (0.0-0.11); LYMPHOCYTES 31.4 %; LYMPHOCYTES ABSOLUTE 2.44 10/3/uL (0.67-4.30); MANUAL DIFF NO %; MEAN CORPUSCULAR HEMOGLOB 26.2 pg (26.0-34.0); MEAN CORPUSCULAR VOLUME 87.4 fL (80-100); MEAN PLATELET VOLUME 9.2 fL (9.2-13.0); MONOCYTES 8.1 %; MONOCYTES ABSOLUTE 0.63 10/3/uL (0.21-1.20); NEUTROPHILS 58.4 %; NEUTROPHILS ABSOLUTE 4.53 10/3/uL (2.02-8.40); PLATELET COUNT 407 10/3/uL (150-400); RBC DISTRIBUTION WIDTH 14.8 % (12.0-16.0); RED CELL COUNT 2.86 10/6/uL (4.0-5.6); WHITE BLOOD CELLS 7.8 10/3/uL (4.5-10.5)
[2016-11-02 02:58] LABS: ALBUMIN 2.9 G/DL (3.5-5.0); BUN (BLOOD UREA NITROGEN) 19 MG/DL (6-23); CALCIUM, SERUM 7.9 MG/DL (8.5-10.4); CHLORIDE, SERUM 110 MMOL/L (96-112); CO2 (CARBON DIOXIDE) 27 MMOL/L (24-34); CREATININE 0.66 MG/DL (0.55-1.02); GFR AFRICAN AMERICAN 132 ML/MIN (>=60); GFR NON AFRICAN AMERICAN 114 ML/MIN (>=60); GLUCOSE, SERUM 291 MG/DL (60-99); SALICYLATE 2.3 MG/DL (-); SGOT(AST) 38 U/L (5-40); SGPT(ALT) 29 U/L (5-65); SODIUM, SERUM 144 MMOL/L (135-148); TOTAL BILIRUBIN 0.1 MG/DL (0-1.2); TOTAL PROTEIN 6.2 G/DL (6.0-8.5)
[2016-11-02 03:00] LABS: A/G RATIO 0.9 (0.7-1.9); ACETAMINOPHEN LEVEL (TYLENOL) < 2.0 MCG/ML (10.0-20.0); ALCOHOL < 3 MG/DL (0); ALKALINE PHOSPHATASE 113 U/L (45-117); GLOBULIN 3.3 G/DL (2.5-4.1); POTASSIUM, SERUM 4.7 MMOL/L (3.5-5.3)
[2016-11-02] MEDS ORDERED: PRILO PO (07:57)
[2016-11-02] MEDS ORDERED: ZOCOR20 PO (07:57)
[2016-11-02] MEDS ORDERED: NEUR300 PO (07:58)
[2016-11-02] MEDS ORDERED: NEUR600 PO (07:58)
[2016-11-02] MEDS ORDERED: ZOL100 PO (07:59)
[2016-11-02 14:29] LABS: ASCORBIC ACID (UR NOT ORDER) NEG (NEG); BILIRUBIN, URINE NEGATIVE (NEG); KETONE, URINE NEGATIVE (NEG); LEUKOCYTE ESTERASE(NOT OR NEG (NEG); WBC (NOT ORDERED) (RFLEX) 2 (0-5)
[2016-11-02 14:33] LABS: HEMATOCRIT 27.2 % (36.0-48.0)
[2016-11-02 14:56] LABS: AMPHETAMINES (NOT ORD) NEG (NEG); BARBITURATES (NOT ORDERED NEG (NEG); BENZODIAZEPINES (NOT ORD) POS (NEG); CANNABINOIDS (THC) POS (NEG); COCAINE (NOT ORDERED) NEG (NEG); OPIATES NEG (NEG); PHENCYCLIDINE(PCP) NEG (NEG); TRICYCLICS NEG (NEG)
[2016-11-03 04:16] LABS: BASOPHILS 0.5 %; BASOPHILS ABSOLUTE 0.05 10/3/uL (0.0-0.16); EOSINOPHILS 2.3 %; EOSINOPHILS ABSOLUTE 0.22 10/3/uL (0.0-0.53); HEMATOCRIT 26.7 % (36.0-48.0); HEMOGLOBIN 8.1 g/dL (12.0-16.0); IMMATURE GRANULOCYTES 0.2 %; IMMATURE GRANULOCYTES ABSOLUTE 0.02 10/3/uL (0.0-0.11); LYMPHOCYTES ABSOLUTE 3.57 10/3/uL (0.67-4.30); MEAN CORPUS HGB CONC 30.3 g/dL (32.0-36.0); MEAN CORPUSCULAR HEMOGLOB 26.8 pg (26.0-34.0); MEAN CORPUSCULAR VOLUME 88.4 fL (80-100); MEAN PLATELET VOLUME 9.3 fL (9.2-13.0); MONOCYTES 7.8 %; MONOCYTES ABSOLUTE 0.73 10/3/uL (0.21-1.20); NEUTROPHILS 51.2 %; PLATELET COUNT 367 10/3/uL (150-400); RED CELL COUNT 3.02 10/6/uL (4.0-5.6); WHITE BLOOD CELLS 9.4 10/3/uL (4.5-10.5)
[2016-11-03 04:20] LABS: MANUAL DIFF NO %
[2016-11-03 04:35] LABS: CALCIUM, SERUM 8.5 MG/DL (8.5-10.4); CHLORIDE, SERUM 109 MMOL/L (96-112); CO2 (CARBON DIOXIDE) 27 MMOL/L (24-34); CREATININE 0.49 MG/DL (0.55-1.02); GFR AFRICAN AMERICAN 145 ML/MIN (>=60); GFR NON AFRICAN AMERICAN 125 ML/MIN (>=60); PHOSPHORUS, SERUM 2.9 MG/DL (2.5-4.5); SODIUM, SERUM 143 MMOL/L (135-148)
[2016-11-03 04:36] LABS: BUN (BLOOD UREA NITROGEN) 7 MG/DL (6-23); GLUCOSE, SERUM 169 MG/DL (60-99)
[2016-11-04 05:29] LABS: BASOPHILS 0.2 %; BASOPHILS ABSOLUTE 0.02 10/3/uL (0.0-0.16); EOSINOPHILS 0.2 %; EOSINOPHILS ABSOLUTE 0.02 10/3/uL (0.0-0.53); HEMATOCRIT 24.8 % (36.0-48.0); HEMOGLOBIN 7.3 g/dL (12.0-16.0); IMMATURE GRANULOCYTES 0.2 %; IMMATURE GRANULOCYTES ABSOLUTE 0.02 10/3/uL (0.0-0.11); LYMPHOCYTES 20.8 %; LYMPHOCYTES ABSOLUTE 1.78 10/3/uL (0.67-4.30); MANUAL DIFF NO %; MEAN CORPUS HGB CONC 29.4 g/dL (32.0-36.0); MEAN CORPUSCULAR HEMOGLOB 25.5 pg (26.0-34.0); MEAN CORPUSCULAR VOLUME 86.7 fL (80-100); MEAN PLATELET VOLUME 9.4 fL (9.2-13.0); MONOCYTES 4.9 %; MONOCYTES ABSOLUTE 0.42 10/3/uL (0.21-1.20); NEUTROPHILS 73.7 %; NEUTROPHILS ABSOLUTE 6.28 10/3/uL (2.02-8.40); PLATELET COUNT 342 10/3/uL (150-400); RBC DISTRIBUTION WIDTH 14.7 % (12.0-16.0); RED CELL COUNT 2.86 10/6/uL (4.0-5.6); WHITE BLOOD CELLS 8.5 10/3/uL (4.5-10.5)
[2016-11-04 05:40] LABS: BUN (BLOOD UREA NITROGEN) 7 MG/DL (6-23); CALCIUM, SERUM 8.6 MG/DL (8.5-10.4); CHLORIDE, SERUM 104 MMOL/L (96-112); CO2 (CARBON DIOXIDE) 24 MMOL/L (24-34); GFR AFRICAN AMERICAN 144 ML/MIN (>=60); GFR NON AFRICAN AMERICAN 125 ML/MIN (>=60); SODIUM, SERUM 140 MMOL/L (135-148)
[2016-11-04 05:41] LABS: GLUCOSE, SERUM 232 MG/DL (60-99); PHOSPHORUS, SERUM 3.8 MG/DL (2.5-4.5)
[2016-11-04] MEDS ORDERED: GOODY'S EX-STR1 EAC1 PO (13:24)
[2016-11-04 16:13] LABS: ALLENS TEST Pos; BE (BASE EXCESS) 3.2 MEQ/L (0 +/- 2.5); CARBOXYHEMOGLOBIN 0.8 % (0-3); HCO3 (ACTUAL BICARBONATE) 26.8 MEQ/L (23-27); HEMOBLOGIN CONTENT 7.4 G/DL (12-16); INSTRUMENT SERIAL # 8083; METHEMOGLOBIN 0.4 % (0-3); MODE CMV; O2 CONTENT 11.8 VOL% (18-24); OPERATOR ID 14382; PCO2 (CO2 TENSION) 36 MMHG (35-45); PO2 (O2 TENSION) 539 MMHG (79-93); SAMPLE Arterial; TIDAL VOLUME 600 ML; pH 7.49 (7.37-7.43)
[2016-11-05 03:43] LABS: BE (BASE EXCESS) 1.4 MEQ/L (0 +/- 2.5); HCO3 (ACTUAL BICARBONATE) 26.1 MEQ/L (23-27); HEMOBLOGIN CONTENT 7.4 G/DL (12-16); INSTRUMENT SERIAL # 8083; METHEMOGLOBIN 0.3 % (0-3); MODE CMV; O2 CONTENT 10.6 VOL% (18-24); OPERATOR ID 23712; PCO2 (CO2 TENSION) 41 MMHG (35-45); PO2 (O2 TENSION) 163 MMHG (79-93); SAMPLE Arterial; TIDAL VOLUME 550 ML; pH 7.42 (7.37-7.43)
[2016-11-05 05:45] LABS: BASOPHILS 0.4 %; BASOPHILS ABSOLUTE 0.03 10/3/uL (0.0-0.16); EOSINOPHILS 0.1 %; EOSINOPHILS ABSOLUTE 0.01 10/3/uL (0.0-0.53); HEMATOCRIT 26.7 % (36.0-48.0); HEMOGLOBIN 7.8 g/dL (12.0-16.0); IMMATURE GRANULOCYTES 0.1 %; IMMATURE GRANULOCYTES ABSOLUTE 0.01 10/3/uL (0.0-0.11); LYMPHOCYTES 16.5 %; LYMPHOCYTES ABSOLUTE 1.33 10/3/uL (0.67-4.30); MEAN CORPUS HGB CONC 29.2 g/dL (32.0-36.0); MEAN CORPUSCULAR HEMOGLOB 25.2 pg (26.0-34.0); MEAN CORPUSCULAR VOLUME 86.4 fL (80-100); MEAN PLATELET VOLUME 9.6 fL (9.2-13.0); MONOCYTES 3.3 %; MONOCYTES ABSOLUTE 0.27 10/3/uL (0.21-1.20); NEUTROPHILS 79.6 %; NEUTROPHILS ABSOLUTE 6.42 10/3/uL (2.02-8.40); PLATELET COUNT 408 10/3/uL (150-400); RBC DISTRIBUTION WIDTH 15.1 % (12.0-16.0); RED CELL COUNT 3.09 10/6/uL (4.0-5.6); WHITE BLOOD CELLS 8.1 10/3/uL (4.5-10.5)
[2016-11-05 05:48] LABS: MANUAL DIFF NO %
[2016-11-05 06:00] LABS: ALBUMIN 3.2 G/DL (3.5-5.0); CALCIUM, SERUM 9.2 MG/DL (8.5-10.4); CHLORIDE, SERUM 103 MMOL/L (96-112); CO2 (CARBON DIOXIDE) 27 MMOL/L (24-34); CREATININE 0.56 MG/DL (0.55-1.02); GFR AFRICAN AMERICAN 139 ML/MIN (>=60); GFR NON AFRICAN AMERICAN 120 ML/MIN (>=60); PHOSPHORUS, SERUM 3.7 MG/DL (2.5-4.5); POTASSIUM, SERUM 3.6 MMOL/L (3.5-5.3); SODIUM, SERUM 143 MMOL/L (135-148)
[2016-11-05 06:05] LABS: BUN (BLOOD UREA NITROGEN) 11 MG/DL (6-23); GLUCOSE, SERUM 165 MG/DL (60-99)
[2016-11-06 03:53] LABS: CARBOXYHEMOGLOBIN 0.9 % (0-3); HCO3 (ACTUAL BICARBONATE) 24.7 MEQ/L (23-27); HEMOBLOGIN CONTENT 7.7 G/DL (12-16); INSTRUMENT SERIAL # 8083; METHEMOGLOBIN 0.4 % (0-3); MODE CMV; OPERATOR ID 17370; PCO2 (CO2 TENSION) 40 MMHG (35-45); PO2 (O2 TENSION) 155 MMHG (79-93); SAMPLE Arterial
[2016-11-06 03:54] LABS: ALLENS TEST Pos; TIDAL VOLUME 550 ML
[2016-11-06 05:31] LABS: BASOPHILS 0.4 %; BASOPHILS ABSOLUTE 0.03 10/3/uL (0.0-0.16); EOSINOPHILS 2.9 %; EOSINOPHILS ABSOLUTE 0.21 10/3/uL (0.0-0.53); HEMATOCRIT 24.4 % (36.0-48.0); HEMOGLOBIN 7.2 g/dL (12.0-16.0); IMMATURE GRANULOCYTES 0.1 %; IMMATURE GRANULOCYTES ABSOLUTE 0.01 10/3/uL (0.0-0.11); LYMPHOCYTES 37.1 %; LYMPHOCYTES ABSOLUTE 2.73 10/3/uL (0.67-4.30); MEAN CORPUS HGB CONC 29.5 g/dL (32.0-36.0); MEAN CORPUSCULAR HEMOGLOB 26.2 pg (26.0-34.0); MEAN CORPUSCULAR VOLUME 88.7 fL (80-100); MEAN PLATELET VOLUME 9.1 fL (9.2-13.0); MONOCYTES ABSOLUTE 0.59 10/3/uL (0.21-1.20); NEUTROPHILS 51.5 %; NEUTROPHILS ABSOLUTE 3.78 10/3/uL (2.02-8.40); PLATELET COUNT 311 10/3/uL (150-400); RBC DISTRIBUTION WIDTH 14.8 % (12.0-16.0); RED CELL COUNT 2.75 10/6/uL (4.0-5.6); WHITE BLOOD CELLS 7.4 10/3/uL (4.5-10.5)
[2016-11-06 05:35] LABS: MANUAL DIFF NO %
[2016-11-06 05:42] LABS: CALCIUM, SERUM 8.4 MG/DL (8.5-10.4); CHLORIDE, SERUM 106 MMOL/L (96-112); CO2 (CARBON DIOXIDE) 25 MMOL/L (24-34); CREATININE 0.31 MG/DL (0.55-1.02); GFR AFRICAN AMERICAN 169 ML/MIN (>=60); GFR NON AFRICAN AMERICAN 146 ML/MIN (>=60); GLUCOSE, SERUM 154 MG/DL (60-99); PHOSPHORUS, SERUM 3.3 MG/DL (2.5-4.5); POTASSIUM, SERUM 3.1 MMOL/L (3.5-5.3); SODIUM, SERUM 141 MMOL/L (135-148)
[2016-11-06 05:45] LABS: BUN (BLOOD UREA NITROGEN) 7 MG/DL (6-23)
[2016-11-06 11:59] LABS: A/G RATIO 0.8 (0.7-1.9); ALBUMIN 2.7 G/DL (3.5-5.0); GLOBULIN 3.5 G/DL (2.5-4.1); PREALBUMIN 15.5 MG/DL (17.0-43.0); SGOT(AST) 17 U/L (5-40); SGPT(ALT) 21 U/L (5-65); TOTAL BILIRUBIN 0.2 MG/DL (0-1.2); TOTAL PROTEIN 6.2 G/DL (6.0-8.5)
[2016-11-06 12:00] LABS: ALKALINE PHOSPHATASE 81 U/L (45-117)
[2016-11-07 03:26] LABS: ALLENS TEST Pos; BE (BASE EXCESS) 2.1 MEQ/L (0 +/- 2.5); CARBOXYHEMOGLOBIN 0.5 % (0-3); HEMOBLOGIN CONTENT 9.2 G/DL (12-16); INSTRUMENT SERIAL # 8083; METHEMOGLOBIN 0.4 % (0-3); MODE CMV; O2 CONTENT 12.9 VOL% (18-24); OPERATOR ID 17370; PCO2 (CO2 TENSION) 50 MMHG (35-45); PO2 (O2 TENSION) 120 MMHG (79-93); SAMPLE Arterial; TIDAL VOLUME 550 ML; pH 7.36 (7.37-7.43)
[2016-11-07 04:41] LABS: BASOPHILS 0.3 %; BASOPHILS ABSOLUTE 0.02 10/3/uL (0.0-0.16); EOSINOPHILS 5.2 %; EOSINOPHILS ABSOLUTE 0.39 10/3/uL (0.0-0.53); HEMATOCRIT 23.9 % (36.0-48.0); IMMATURE GRANULOCYTES 0.1 %; IMMATURE GRANULOCYTES ABSOLUTE 0.01 10/3/uL (0.0-0.11); LYMPHOCYTES 26.8 %; LYMPHOCYTES ABSOLUTE 1.99 10/3/uL (0.67-4.30); MEAN CORPUS HGB CONC 29.3 g/dL (32.0-36.0); MEAN CORPUSCULAR HEMOGLOB 25.9 pg (26.0-34.0); MEAN CORPUSCULAR VOLUME 88.5 fL (80-100); MONOCYTES 7.8 %; MONOCYTES ABSOLUTE 0.58 10/3/uL (0.21-1.20); NEUTROPHILS 59.8 %; NEUTROPHILS ABSOLUTE 4.44 10/3/uL (2.02-8.40); PLATELET COUNT 313 10/3/uL (150-400); RBC DISTRIBUTION WIDTH 14.8 % (12.0-16.0); WHITE BLOOD CELLS 7.4 10/3/uL (4.5-10.5)
[2016-11-07 04:48] LABS: MANUAL DIFF NO %
[2016-11-07 04:58] LABS: BUN (BLOOD UREA NITROGEN) 5 MG/DL (6-23); CALCIUM, SERUM 8.1 MG/DL (8.5-10.4); CHLORIDE, SERUM 108 MMOL/L (96-112); CREATININE 0.35 MG/DL (0.55-1.02); GFR AFRICAN AMERICAN 162 ML/MIN (>=60); GFR NON AFRICAN AMERICAN 140 ML/MIN (>=60); GLUCOSE, SERUM 155 MG/DL (60-99); PHOSPHORUS, SERUM 3.3 MG/DL (2.5-4.5); POTASSIUM, SERUM 3.4 MMOL/L (3.5-5.3); SODIUM, SERUM 146 MMOL/L (135-148); VANCOMYCIN TROUGH 13.1 MCG/ML (10.0-20.0)
[2016-11-07 05:00] LABS: CO2 (CARBON DIOXIDE) 30 MMOL/L (24-34)
[2016-11-08 01:53] LABS: ALLENS TEST Pos; BE (BASE EXCESS) 5.5 MEQ/L (0 +/- 2.5); CARBOXYHEMOGLOBIN 0.7 % (0-3); HEMOBLOGIN CONTENT 7.1 G/DL (12-16); INSTRUMENT SERIAL # 8083; METHEMOGLOBIN 0.4 % (0-3); MODE CMV; O2 CONTENT 11.2 VOL% (18-24); OPERATOR ID 31061; PCO2 (CO2 TENSION) 44 MMHG (35-45); PO2 (O2 TENSION) 465 MMHG (79-93); SAMPLE Arterial; TIDAL VOLUME 550 ML; pH 7.45 (7.37-7.43)
[2016-11-08 03:32] LABS: BASOPHILS 0.5 %; BASOPHILS ABSOLUTE 0.05 10/3/uL (0.0-0.16); EOSINOPHILS 3.7 %; EOSINOPHILS ABSOLUTE 0.36 10/3/uL (0.0-0.53); HEMATOCRIT 24.8 % (36.0-48.0); HEMOGLOBIN 7.5 g/dL (12.0-16.0); IMMATURE GRANULOCYTES 0.3 %; IMMATURE GRANULOCYTES ABSOLUTE 0.03 10/3/uL (0.0-0.11); LYMPHOCYTES 23.8 %; LYMPHOCYTES ABSOLUTE 2.34 10/3/uL (0.67-4.30); MEAN CORPUS HGB CONC 30.2 g/dL (32.0-36.0); MEAN CORPUSCULAR HEMOGLOB 26.6 pg (26.0-34.0); MEAN CORPUSCULAR VOLUME 87.9 fL (80-100); MEAN PLATELET VOLUME 8.8 fL (9.2-13.0); MONOCYTES 10.7 %; MONOCYTES ABSOLUTE 1.05 10/3/uL (0.21-1.20); PLATELET COUNT 341 10/3/uL (150-400); RBC DISTRIBUTION WIDTH 14.6 % (12.0-16.0); RED CELL COUNT 2.82 10/6/uL (4.0-5.6); WHITE BLOOD CELLS 9.8 10/3/uL (4.5-10.5)
[2016-11-08 03:33] LABS: MANUAL DIFF NO %
[2016-11-08 03:54] LABS: BUN (BLOOD UREA NITROGEN) 8 MG/DL (6-23); CALCIUM, SERUM 8.2 MG/DL (8.5-10.4); CHLORIDE, SERUM 103 MMOL/L (96-112); CO2 (CARBON DIOXIDE) 28 MMOL/L (24-34); CREATININE 0.47 MG/DL (0.55-1.02); GFR AFRICAN AMERICAN 147 ML/MIN (>=60); GFR NON AFRICAN AMERICAN 127 ML/MIN (>=60); PHOSPHORUS, SERUM 3.4 MG/DL (2.5-4.5); SODIUM, SERUM 141 MMOL/L (135-148)
[2016-11-08 04:00] LABS: GLUCOSE, SERUM 122 MG/DL (60-99); POTASSIUM, SERUM 4.6 MMOL/L (3.5-5.3)
[2016-11-09 04:42] LABS: BASOPHILS 0.1 %; BASOPHILS ABSOLUTE 0.01 10/3/uL (0.0-0.16); EOSINOPHILS 0.1 %; EOSINOPHILS ABSOLUTE 0.01 10/3/uL (0.0-0.53); HEMATOCRIT 26.4 % (36.0-48.0); HEMOGLOBIN 7.8 g/dL (12.0-16.0); LYMPHOCYTES 10.4 %; LYMPHOCYTES ABSOLUTE 0.72 10/3/uL (0.67-4.30); MEAN CORPUS HGB CONC 29.5 g/dL (32.0-36.0); MEAN CORPUSCULAR HEMOGLOB 25.3 pg (26.0-34.0); MEAN CORPUSCULAR VOLUME 85.7 fL (80-100); MEAN PLATELET VOLUME 9.6 fL (9.2-13.0); MONOCYTES 0.7 %; MONOCYTES ABSOLUTE 0.05 10/3/uL (0.21-1.20); NEUTROPHILS 88.7 %; NEUTROPHILS ABSOLUTE 6.15 10/3/uL (2.02-8.40); PLATELET COUNT 398 10/3/uL (150-400); RBC DISTRIBUTION WIDTH 14.6 % (12.0-16.0); RED CELL COUNT 3.08 10/6/uL (4.0-5.6); WHITE BLOOD CELLS 6.9 10/3/uL (4.5-10.5)
[2016-11-09 04:50] LABS: BUN (BLOOD UREA NITROGEN) 11 MG/DL (6-23); CALCIUM, SERUM 9.4 MG/DL (8.5-10.4); CHLORIDE, SERUM 105 MMOL/L (96-112); CO2 (CARBON DIOXIDE) 22 MMOL/L (24-34); CREATININE 0.32 MG/DL (0.55-1.02); GFR AFRICAN AMERICAN 167 ML/MIN (>=60); GFR NON AFRICAN AMERICAN 144 ML/MIN (>=60); GLUCOSE, SERUM 216 MG/DL (60-99); POTASSIUM, SERUM 4.1 MMOL/L (3.5-5.3); SODIUM, SERUM 142 MMOL/L (135-148); VANCOMYCIN TROUGH 21.6 MCG/ML (10.0-20.0)
[2016-11-09 04:54] LABS: MANUAL DIFF NO %
[2016-11-10 07:02] LABS: BASOPHILS 0.4 %; BASOPHILS ABSOLUTE 0.04 10/3/uL (0.0-0.16); EOSINOPHILS 1.8 %; EOSINOPHILS ABSOLUTE 0.19 10/3/uL (0.0-0.53); HEMATOCRIT 28.1 % (36.0-48.0); IMMATURE GRANULOCYTES 0.3 %; IMMATURE GRANULOCYTES ABSOLUTE 0.03 10/3/uL (0.0-0.11); LYMPHOCYTES 24.6 %; LYMPHOCYTES ABSOLUTE 2.63 10/3/uL (0.67-4.30); MEAN CORPUS HGB CONC 28.5 g/dL (32.0-36.0); MEAN CORPUSCULAR HEMOGLOB 25.5 pg (26.0-34.0); MEAN PLATELET VOLUME 9.4 fL (9.2-13.0); MONOCYTES 7.6 %; MONOCYTES ABSOLUTE 0.81 10/3/uL (0.21-1.20); NEUTROPHILS 65.3 %; NEUTROPHILS ABSOLUTE 6.98 10/3/uL (2.02-8.40); RBC DISTRIBUTION WIDTH 14.6 % (12.0-16.0); RED CELL COUNT 3.14 10/6/uL (4.0-5.6)
[2016-11-10 07:05] LABS: MANUAL DIFF NO %; MEAN CORPUSCULAR VOLUME 89.5 fL (80-100); PLATELET COUNT 245 10/3/uL (150-400); WHITE BLOOD CELLS 10.7 10/3/uL (4.5-10.5)
[2016-11-10 08:06] LABS: A/G RATIO 0.8 (0.7-1.9); ALBUMIN 2.6 G/DL (3.5-5.0); ALKALINE PHOSPHATASE 91 U/L (45-117); BUN (BLOOD UREA NITROGEN) 11 MG/DL (6-23); CALCIUM, SERUM 8.6 MG/DL (8.5-10.4); CHLORIDE, SERUM 103 MMOL/L (96-112); CO2 (CARBON DIOXIDE) 28 MMOL/L (24-34); CREATININE 0.44 MG/DL (0.55-1.02); GFR AFRICAN AMERICAN 151 ML/MIN (>=60); GFR NON AFRICAN AMERICAN 130 ML/MIN (>=60); GLOBULIN 3.4 G/DL (2.5-4.1); GLUCOSE, SERUM 207 MG/DL (60-99); PHOSPHORUS, SERUM 2.9 MG/DL (2.5-4.5); POTASSIUM, SERUM 2.9 MMOL/L (3.5-5.3); SGOT(AST) 5 U/L (5-40); SGPT(ALT) 14 U/L (5-65); SODIUM, SERUM 142 MMOL/L (135-148); TOTAL BILIRUBIN 0.3 MG/DL (0-1.2); VANCOMYCIN TROUGH 11.6 MCG/ML (10.0-20.0)
[2016-11-10 08:40] LABS: ASCORBIC ACID (UR NOT ORDER) NEG (NEG); BILIRUBIN, URINE NEGATIVE (NEG); KETONE, URINE 20 MG/DL (NEG); LEUKOCYTE ESTERASE(NOT OR MOD (NEG); WBC (NOT ORDERED) (RFLEX) 13 (0-5)
[2016-11-10 15:00] LABS: BUN (BLOOD UREA NITROGEN) 8 MG/DL (6-23); CALCIUM, SERUM 8.9 MG/DL (8.5-10.4); CHLORIDE, SERUM 104 MMOL/L (96-112); CO2 (CARBON DIOXIDE) 31 MMOL/L (24-34); CREATININE 0.35 MG/DL (0.55-1.02); GFR AFRICAN AMERICAN 162 ML/MIN (>=60); GFR NON AFRICAN AMERICAN 140 ML/MIN (>=60); GLUCOSE, SERUM 190 MG/DL (60-99); POTASSIUM, SERUM 3.4 MMOL/L (3.5-5.3); SODIUM, SERUM 144 MMOL/L (135-148)
[2016-11-10 23:23] LABS: BUN (BLOOD UREA NITROGEN) 6 MG/DL (6-23); CALCIUM, SERUM 8.2 MG/DL (8.5-10.4); CHLORIDE, SERUM 106 MMOL/L (96-112); CO2 (CARBON DIOXIDE) 30 MMOL/L (24-34); CREATININE 0.27 MG/DL (0.55-1.02); GFR AFRICAN AMERICAN 177 ML/MIN (>=60); GFR NON AFRICAN AMERICAN 152 ML/MIN (>=60); POTASSIUM, SERUM 3.5 MMOL/L (3.5-5.3); SODIUM, SERUM 145 MMOL/L (135-148)
[2016-11-10 23:27] LABS: GLUCOSE, SERUM 142 MG/DL (60-99)
[2016-11-11 05:33] LABS: BASOPHILS 0.3 %; BASOPHILS ABSOLUTE 0.02 10/3/uL (0.0-0.16); EOSINOPHILS 4.3 %; EOSINOPHILS ABSOLUTE 0.27 10/3/uL (0.0-0.53); HEMATOCRIT 26.3 % (36.0-48.0); HEMOGLOBIN 7.4 g/dL (12.0-16.0); IMMATURE GRANULOCYTES 0.2 %; IMMATURE GRANULOCYTES ABSOLUTE 0.01 10/3/uL (0.0-0.11); LYMPHOCYTES 29.7 %; LYMPHOCYTES ABSOLUTE 1.87 10/3/uL (0.67-4.30); MEAN CORPUS HGB CONC 28.1 g/dL (32.0-36.0); MEAN CORPUSCULAR HEMOGLOB 25.1 pg (26.0-34.0); MEAN CORPUSCULAR VOLUME 89.2 fL (80-100); MEAN PLATELET VOLUME 9.1 fL (9.2-13.0); MONOCYTES ABSOLUTE 0.44 10/3/uL (0.21-1.20); NEUTROPHILS 58.5 %; NEUTROPHILS ABSOLUTE 3.69 10/3/uL (2.02-8.40); RBC DISTRIBUTION WIDTH 14.5 % (12.0-16.0); RED CELL COUNT 2.95 10/6/uL (4.0-5.6)
[2016-11-11 05:35] LABS: MANUAL DIFF NO %; PLATELET COUNT 321 10/3/uL (150-400); WHITE BLOOD CELLS 6.3 10/3/uL (4.5-10.5)
[2016-11-11 05:50] LABS: BUN (BLOOD UREA NITROGEN) 6 MG/DL (6-23); CALCIUM, SERUM 8.4 MG/DL (8.5-10.4); CHLORIDE, SERUM 104 MMOL/L (96-112); CO2 (CARBON DIOXIDE) 26 MMOL/L (24-34); CREATININE 0.32 MG/DL (0.55-1.02); GFR AFRICAN AMERICAN 167 ML/MIN (>=60); GFR NON AFRICAN AMERICAN 144 ML/MIN (>=60); PHOSPHORUS, SERUM 3.5 MG/DL (2.5-4.5); SODIUM, SERUM 143 MMOL/L (135-148)
[2016-11-11 05:51] LABS: GLUCOSE, SERUM 310 MG/DL (60-99); POTASSIUM, SERUM 4.3 MMOL/L (3.5-5.3)
[2016-11-12 04:27] LABS: BASOPHILS 0.2 %; BASOPHILS ABSOLUTE 0.02 10/3/uL (0.0-0.16); EOSINOPHILS 3.3 %; EOSINOPHILS ABSOLUTE 0.28 10/3/uL (0.0-0.53); HEMATOCRIT 28.9 % (36.0-48.0); HEMOGLOBIN 8.6 g/dL (12.0-16.0); IMMATURE GRANULOCYTES 0.4 %; IMMATURE GRANULOCYTES ABSOLUTE 0.03 10/3/uL (0.0-0.11); LYMPHOCYTES 20.6 %; LYMPHOCYTES ABSOLUTE 1.74 10/3/uL (0.67-4.30); MEAN CORPUSCULAR HEMOGLOB 26.1 pg (26.0-34.0); MEAN CORPUSCULAR VOLUME 87.8 fL (80-100); MEAN PLATELET VOLUME 10.3 fL (9.2-13.0); MONOCYTES 7.5 %; MONOCYTES ABSOLUTE 0.63 10/3/uL (0.21-1.20); NEUTROPHILS ABSOLUTE 5.73 10/3/uL (2.02-8.40); PLATELET COUNT 290 10/3/uL (150-400); RBC DISTRIBUTION WIDTH 14.5 % (12.0-16.0); RED CELL COUNT 3.29 10/6/uL (4.0-5.6); WHITE BLOOD CELLS 8.4 10/3/uL (4.5-10.5)
[2016-11-12 04:28] LABS: MANUAL DIFF NO %; MEAN CORPUS HGB CONC 29.8 g/dL (32.0-36.0)
[2016-11-12 04:43] LABS: BUN (BLOOD UREA NITROGEN) 8 MG/DL (6-23); CALCIUM, SERUM 8.5 MG/DL (8.5-10.4); CHLORIDE, SERUM 108 MMOL/L (96-112); CO2 (CARBON DIOXIDE) 27 MMOL/L (24-34); CREATININE 0.44 MG/DL (0.55-1.02); GFR AFRICAN AMERICAN 151 ML/MIN (>=60); GFR NON AFRICAN AMERICAN 130 ML/MIN (>=60); PHOSPHORUS, SERUM 3.9 MG/DL (2.5-4.5); SODIUM, SERUM 145 MMOL/L (135-148)
[2016-11-12 04:45] LABS: POTASSIUM, SERUM 4.5 MMOL/L (3.5-5.3)
[2016-11-12 04:46] LABS: GLUCOSE, SERUM 215 MG/DL (60-99)
[2016-11-12 06:34] LABS: PLATELET ESTIMATE ADQ (ADEQUATE); RBC MORPHOLOGY NORM (NORMAL)
[2016-11-13 03:55] LABS: BASOPHILS 0.5 %; BASOPHILS ABSOLUTE 0.03 10/3/uL (0.0-0.16); EOSINOPHILS 4.2 %; EOSINOPHILS ABSOLUTE 0.24 10/3/uL (0.0-0.53); HEMOGLOBIN 7.4 g/dL (12.0-16.0); IMMATURE GRANULOCYTES 0.2 %; IMMATURE GRANULOCYTES ABSOLUTE 0.01 10/3/uL (0.0-0.11); LYMPHOCYTES 32.7 %; LYMPHOCYTES ABSOLUTE 1.86 10/3/uL (0.67-4.30); MANUAL DIFF NO %; MEAN CORPUS HGB CONC 29.6 g/dL (32.0-36.0); MEAN CORPUSCULAR HEMOGLOB 25.7 pg (26.0-34.0); MEAN CORPUSCULAR VOLUME 86.8 fL (80-100); MEAN PLATELET VOLUME 9.4 fL (9.2-13.0); MONOCYTES 8.4 %; MONOCYTES ABSOLUTE 0.48 10/3/uL (0.21-1.20); NEUTROPHILS ABSOLUTE 3.07 10/3/uL (2.02-8.40); PLATELET COUNT 347 10/3/uL (150-400); RBC DISTRIBUTION WIDTH 14.4 % (12.0-16.0); RED CELL COUNT 2.88 10/6/uL (4.0-5.6); WHITE BLOOD CELLS 5.7 10/3/uL (4.5-10.5)
[2016-11-13 04:04] LABS: BUN (BLOOD UREA NITROGEN) 7 MG/DL (6-23); CALCIUM, SERUM 8.4 MG/DL (8.5-10.4); CHLORIDE, SERUM 104 MMOL/L (96-112); CREATININE 0.41 MG/DL (0.55-1.02); GFR AFRICAN AMERICAN 154 ML/MIN (>=60); GFR NON AFRICAN AMERICAN 133 ML/MIN (>=60); GLUCOSE, SERUM 200 MG/DL (60-99); PHOSPHORUS, SERUM 3.2 MG/DL (2.5-4.5); SODIUM, SERUM 147 MMOL/L (135-148)
[2016-11-13 04:05] LABS: CO2 (CARBON DIOXIDE) 33 MMOL/L (24-34); POTASSIUM, SERUM 3.3 MMOL/L (3.5-5.3)
[2016-11-14 04:23] LABS: BASOPHILS 0.5 %; BASOPHILS ABSOLUTE 0.03 10/3/uL (0.0-0.16); EOSINOPHILS 4.4 %; EOSINOPHILS ABSOLUTE 0.26 10/3/uL (0.0-0.53); HEMATOCRIT 25.4 % (36.0-48.0); HEMOGLOBIN 7.4 g/dL (12.0-16.0); IMMATURE GRANULOCYTES 0.3 %; IMMATURE GRANULOCYTES ABSOLUTE 0.02 10/3/uL (0.0-0.11); LYMPHOCYTES 28.9 %; MEAN CORPUS HGB CONC 29.1 g/dL (32.0-36.0); MEAN CORPUSCULAR HEMOGLOB 25.3 pg (26.0-34.0); MEAN CORPUSCULAR VOLUME 86.7 fL (80-100); MEAN PLATELET VOLUME 9.3 fL (9.2-13.0); MONOCYTES 9.5 %; MONOCYTES ABSOLUTE 0.56 10/3/uL (0.21-1.20); NEUTROPHILS 56.4 %; NEUTROPHILS ABSOLUTE 3.31 10/3/uL (2.02-8.40); PLATELET COUNT 356 10/3/uL (150-400); RBC DISTRIBUTION WIDTH 14.3 % (12.0-16.0); RED CELL COUNT 2.93 10/6/uL (4.0-5.6); WHITE BLOOD CELLS 5.9 10/3/uL (4.5-10.5)
[2016-11-14 04:25] LABS: MANUAL DIFF NO %
[2016-11-14 04:33] LABS: BUN (BLOOD UREA NITROGEN) 8 MG/DL (6-23); CALCIUM, SERUM 8.6 MG/DL (8.5-10.4); CHLORIDE, SERUM 107 MMOL/L (96-112); CO2 (CARBON DIOXIDE) 32 MMOL/L (24-34); CREATININE 0.31 MG/DL (0.55-1.02); GFR AFRICAN AMERICAN 169 ML/MIN (>=60); GFR NON AFRICAN AMERICAN 146 ML/MIN (>=60); POTASSIUM, SERUM 3.4 MMOL/L (3.5-5.3); SODIUM, SERUM 149 MMOL/L (135-148)
[2016-11-14 04:38] LABS: GLUCOSE, SERUM 119 MG/DL (60-99); PHOSPHORUS, SERUM 4.5 MG/DL (2.5-4.5)
[2016-11-15 04:20] LABS: BASOPHILS 0.3 %; BASOPHILS ABSOLUTE 0.02 10/3/uL (0.0-0.16); EOSINOPHILS 4.4 %; EOSINOPHILS ABSOLUTE 0.29 10/3/uL (0.0-0.53); IMMATURE GRANULOCYTES 0.3 %; IMMATURE GRANULOCYTES ABSOLUTE 0.02 10/3/uL (0.0-0.11); LYMPHOCYTES 23.7 %; LYMPHOCYTES ABSOLUTE 1.55 10/3/uL (0.67-4.30); MEAN CORPUS HGB CONC 29.2 g/dL (32.0-36.0); MEAN CORPUSCULAR HEMOGLOB 24.9 pg (26.0-34.0); MEAN CORPUSCULAR VOLUME 85.4 fL (80-100); MEAN PLATELET VOLUME 9.1 fL (9.2-13.0); MONOCYTES 8.1 %; MONOCYTES ABSOLUTE 0.53 10/3/uL (0.21-1.20); NEUTROPHILS 63.2 %; NEUTROPHILS ABSOLUTE 4.12 10/3/uL (2.02-8.40); PLATELET COUNT 319 10/3/uL (150-400); RBC DISTRIBUTION WIDTH 14.2 % (12.0-16.0); RED CELL COUNT 2.81 10/6/uL (4.0-5.6); WHITE BLOOD CELLS 6.5 10/3/uL (4.5-10.5)
[2016-11-15 04:22] LABS: MANUAL DIFF NO %
[2016-11-15 04:27] LABS: PHOSPHORUS, SERUM 3.7 MG/DL (2.5-4.5)
[2016-11-15 05:15] LABS: BUN (BLOOD UREA NITROGEN) 8 MG/DL (6-23); CALCIUM, SERUM 8.1 MG/DL (8.5-10.4); CHLORIDE, SERUM 107 MMOL/L (96-112); CO2 (CARBON DIOXIDE) 30 MMOL/L (24-34); CREATININE 0.29 MG/DL (0.55-1.02); GFR AFRICAN AMERICAN 173 ML/MIN (>=60); GFR NON AFRICAN AMERICAN 149 ML/MIN (>=60); GLUCOSE, SERUM 124 MG/DL (60-99); POTASSIUM, SERUM 3.2 MMOL/L (3.5-5.3); SODIUM, SERUM 146 MMOL/L (135-148)
[2016-11-15 05:46] LABS: PROCALCITONIN 0.07 ng/mL (<0.5)
[2016-11-15 12:49] LABS: IRON BINDING CAPACITY 307 MCG/DL (225-410); IRON, SERUM 24 MCG/DL (35-150)
[2016-11-16 03:55] LABS: BASOPHILS 1.1 %; BASOPHILS ABSOLUTE 0.06 10/3/uL (0.0-0.16); EOSINOPHILS 4.4 %; EOSINOPHILS ABSOLUTE 0.25 10/3/uL (0.0-0.53); HEMATOCRIT 27.6 % (36.0-48.0); HEMOGLOBIN 8.2 g/dL (12.0-16.0); IMMATURE GRANULOCYTES 0.2 %; IMMATURE GRANULOCYTES ABSOLUTE 0.01 10/3/uL (0.0-0.11); LYMPHOCYTES 32.6 %; LYMPHOCYTES ABSOLUTE 1.84 10/3/uL (0.67-4.30); MANUAL DIFF NO %; MEAN CORPUS HGB CONC 29.7 g/dL (32.0-36.0); MEAN CORPUSCULAR HEMOGLOB 25.2 pg (26.0-34.0); MEAN CORPUSCULAR VOLUME 84.7 fL (80-100); MEAN PLATELET VOLUME 9.4 fL (9.2-13.0); MONOCYTES 7.8 %; MONOCYTES ABSOLUTE 0.44 10/3/uL (0.21-1.20); NEUTROPHILS 53.9 %; NEUTROPHILS ABSOLUTE 3.05 10/3/uL (2.02-8.40); PLATELET COUNT 386 10/3/uL (150-400); RBC DISTRIBUTION WIDTH 14.1 % (12.0-16.0); RED CELL COUNT 3.26 10/6/uL (4.0-5.6); WHITE BLOOD CELLS 5.7 10/3/uL (4.5-10.5)
[2016-11-16 04:07] LABS: BUN (BLOOD UREA NITROGEN) 8 MG/DL (6-23); CALCIUM, SERUM 8.8 MG/DL (8.5-10.4); CHLORIDE, SERUM 105 MMOL/L (96-112); CO2 (CARBON DIOXIDE) 32 MMOL/L (24-34); CREATININE 0.41 MG/DL (0.55-1.02); GFR AFRICAN AMERICAN 154 ML/MIN (>=60); GFR NON AFRICAN AMERICAN 133 ML/MIN (>=60); PHOSPHORUS, SERUM 3.4 MG/DL (2.5-4.5); POTASSIUM, SERUM 3.6 MMOL/L (3.5-5.3); SODIUM, SERUM 146 MMOL/L (135-148)
[2016-11-16 04:08] LABS: GLUCOSE, SERUM 234 MG/DL (60-99)
[2016-11-16 05:35] LABS: PROCALCITONIN 0.09 ng/mL (<0.5)
[2016-11-18 04:42] LABS: CALCIUM, SERUM 9.1 MG/DL (8.5-10.4); CHLORIDE, SERUM 102 MMOL/L (96-112); CO2 (CARBON DIOXIDE) 28 MMOL/L (24-34); CREATININE 0.39 MG/DL (0.55-1.02); GFR AFRICAN AMERICAN 157 ML/MIN (>=60); GFR NON AFRICAN AMERICAN 135 ML/MIN (>=60); GLUCOSE, SERUM 271 MG/DL (60-99); PHOSPHORUS, SERUM 3.6 MG/DL (2.5-4.5); POTASSIUM, SERUM 3.9 MMOL/L (3.5-5.3); SODIUM, SERUM 141 MMOL/L (135-148)
[2016-11-18 04:45] LABS: BUN (BLOOD UREA NITROGEN) 14 MG/DL (6-23)
[2016-11-18 04:58] LABS: BASOPHILS 0.6 %; BASOPHILS ABSOLUTE 0.04 10/3/uL (0.0-0.16); EOSINOPHILS 0.1 %; EOSINOPHILS ABSOLUTE 0.01 10/3/uL (0.0-0.53); HEMATOCRIT 28.7 % (36.0-48.0); HEMOGLOBIN 8.2 g/dL (12.0-16.0); IMMATURE GRANULOCYTES 0.1 %; IMMATURE GRANULOCYTES ABSOLUTE 0.01 10/3/uL (0.0-0.11); LYMPHOCYTES 24.7 %; MANUAL DIFF NO %; MEAN CORPUS HGB CONC 28.6 g/dL (32.0-36.0); MEAN CORPUSCULAR HEMOGLOB 24.4 pg (26.0-34.0); MEAN CORPUSCULAR VOLUME 85.4 fL (80-100); MEAN PLATELET VOLUME 9.7 fL (9.2-13.0); MONOCYTES 4.8 %; MONOCYTES ABSOLUTE 0.33 10/3/uL (0.21-1.20); NEUTROPHILS 69.7 %; NEUTROPHILS ABSOLUTE 4.78 10/3/uL (2.02-8.40); PLATELET COUNT 402 10/3/uL (150-400); RBC DISTRIBUTION WIDTH 14.4 % (12.0-16.0); RED CELL COUNT 3.36 10/6/uL (4.0-5.6); WHITE BLOOD CELLS 6.9 10/3/uL (4.5-10.5)
[2016-11-18 05:30] LABS: PLATELET ESTIMATE ADQ (ADEQUATE); RBC MORPHOLOGY NORM (NORMAL)
[2016-11-19 04:30] LABS: BASOPHILS 0.6 %; BASOPHILS ABSOLUTE 0.04 10/3/uL (0.0-0.16); EOSINOPHILS 0.2 %; EOSINOPHILS ABSOLUTE 0.01 10/3/uL (0.0-0.53); HEMATOCRIT 28.3 % (36.0-48.0); HEMOGLOBIN 8.4 g/dL (12.0-16.0); IMMATURE GRANULOCYTES 0.2 %; IMMATURE GRANULOCYTES ABSOLUTE 0.01 10/3/uL (0.0-0.11); LYMPHOCYTES 22.9 %; LYMPHOCYTES ABSOLUTE 1.45 10/3/uL (0.67-4.30); MANUAL DIFF NO %; MEAN CORPUS HGB CONC 29.7 g/dL (32.0-36.0); MEAN CORPUSCULAR VOLUME 84.2 fL (80-100); MEAN PLATELET VOLUME 10.1 fL (9.2-13.0); MONOCYTES 4.3 %; MONOCYTES ABSOLUTE 0.27 10/3/uL (0.21-1.20); NEUTROPHILS 71.8 %; NEUTROPHILS ABSOLUTE 4.55 10/3/uL (2.02-8.40); PLATELET COUNT 393 10/3/uL (150-400); RBC DISTRIBUTION WIDTH 14.4 % (12.0-16.0); RED CELL COUNT 3.36 10/6/uL (4.0-5.6); WHITE BLOOD CELLS 6.3 10/3/uL (4.5-10.5)
[2016-11-19 04:46] LABS: A/G RATIO 0.7 (0.7-1.9); ALKALINE PHOSPHATASE 91 U/L (45-117); BUN (BLOOD UREA NITROGEN) 11 MG/DL (6-23); CHLORIDE, SERUM 105 MMOL/L (96-112); CO2 (CARBON DIOXIDE) 31 MMOL/L (24-34); CREATININE 0.37 MG/DL (0.55-1.02); GFR AFRICAN AMERICAN 159 ML/MIN (>=60); GFR NON AFRICAN AMERICAN 137 ML/MIN (>=60); GLUCOSE, SERUM 231 MG/DL (60-99); PHOSPHORUS, SERUM 3.8 MG/DL (2.5-4.5); POTASSIUM, SERUM 3.4 MMOL/L (3.5-5.3); PREALBUMIN 14.5 MG/DL (17.0-43.0); SGOT(AST) 15 U/L (5-40); SGPT(ALT) 15 U/L (5-65); SODIUM, SERUM 146 MMOL/L (135-148); TOTAL BILIRUBIN 0.1 MG/DL (0-1.2); TOTAL PROTEIN 7.1 G/DL (6.0-8.5)
[2016-11-19 04:50] LABS: GLOBULIN 4.1 G/DL (2.5-4.1)
[2016-11-20 04:20] LABS: BASOPHILS 0.3 %; BASOPHILS ABSOLUTE 0.03 10/3/uL (0.0-0.16); EOSINOPHILS 0.2 %; EOSINOPHILS ABSOLUTE 0.02 10/3/uL (0.0-0.53); HEMATOCRIT 25.6 % (36.0-48.0); HEMOGLOBIN 7.9 g/dL (12.0-16.0); IMMATURE GRANULOCYTES 0.2 %; IMMATURE GRANULOCYTES ABSOLUTE 0.02 10/3/uL (0.0-0.11); LYMPHOCYTES 26.6 %; LYMPHOCYTES ABSOLUTE 2.64 10/3/uL (0.67-4.30); MEAN CORPUS HGB CONC 30.9 g/dL (32.0-36.0); MEAN CORPUSCULAR HEMOGLOB 25.5 pg (26.0-34.0); MEAN CORPUSCULAR VOLUME 82.6 fL (80-100); MEAN PLATELET VOLUME 9.9 fL (9.2-13.0); MONOCYTES 8.2 %; MONOCYTES ABSOLUTE 0.81 10/3/uL (0.21-1.20); NEUTROPHILS 64.5 %; PLATELET COUNT 410 10/3/uL (150-400); RBC DISTRIBUTION WIDTH 14.7 % (12.0-16.0)
[2016-11-20 04:21] LABS: MANUAL DIFF NO %; WHITE BLOOD CELLS 9.9 10/3/uL (4.5-10.5)
[2016-11-20 04:34] LABS: BUN (BLOOD UREA NITROGEN) 14 MG/DL (6-23); CALCIUM, SERUM 8.5 MG/DL (8.5-10.4); CHLORIDE, SERUM 105 MMOL/L (96-112); CO2 (CARBON DIOXIDE) 30 MMOL/L (24-34); CREATININE 0.47 MG/DL (0.55-1.02); GFR AFRICAN AMERICAN 147 ML/MIN (>=60); GFR NON AFRICAN AMERICAN 127 ML/MIN (>=60); GLUCOSE, SERUM 212 MG/DL (60-99); PHOSPHORUS, SERUM 2.9 MG/DL (2.5-4.5); SODIUM, SERUM 144 MMOL/L (135-148)
[2016-11-20 04:35] LABS: POTASSIUM, SERUM 2.9 MMOL/L (3.5-5.3)
[2016-11-21 04:45] LABS: BASOPHILS 0.2 %; BASOPHILS ABSOLUTE 0.03 10/3/uL (0.0-0.16); EOSINOPHILS 0.1 %; EOSINOPHILS ABSOLUTE 0.01 10/3/uL (0.0-0.53); HEMOGLOBIN 8.4 g/dL (12.0-16.0); IMMATURE GRANULOCYTES 0.3 %; IMMATURE GRANULOCYTES ABSOLUTE 0.04 10/3/uL (0.0-0.11); LYMPHOCYTES 21.7 %; LYMPHOCYTES ABSOLUTE 2.69 10/3/uL (0.67-4.30); MEAN CORPUS HGB CONC 31.1 g/dL (32.0-36.0); MEAN CORPUSCULAR HEMOGLOB 25.7 pg (26.0-34.0); MEAN CORPUSCULAR VOLUME 82.6 fL (80-100); MEAN PLATELET VOLUME 10.3 fL (9.2-13.0); MONOCYTES 8.5 %; MONOCYTES ABSOLUTE 1.05 10/3/uL (0.21-1.20); NEUTROPHILS 69.2 %; NEUTROPHILS ABSOLUTE 8.58 10/3/uL (2.02-8.40); PLATELET COUNT 392 10/3/uL (150-400); RBC DISTRIBUTION WIDTH 14.7 % (12.0-16.0); RED CELL COUNT 3.27 10/6/uL (4.0-5.6); WHITE BLOOD CELLS 12.4 10/3/uL (4.5-10.5)
[2016-11-21 04:46] LABS: MANUAL DIFF NO %
[2016-11-21 05:08] LABS: BUN (BLOOD UREA NITROGEN) 16 MG/DL (6-23); CALCIUM, SERUM 9.1 MG/DL (8.5-10.4); CHLORIDE, SERUM 105 MMOL/L (96-112); CO2 (CARBON DIOXIDE) 26 MMOL/L (24-34); CREATININE 0.54 MG/DL (0.55-1.02); GFR AFRICAN AMERICAN 141 ML/MIN (>=60); GFR NON AFRICAN AMERICAN 121 ML/MIN (>=60); GLUCOSE, SERUM 223 MG/DL (60-99); PHOSPHORUS, SERUM 2.9 MG/DL (2.5-4.5); POTASSIUM, SERUM 3.5 MMOL/L (3.5-5.3); SODIUM, SERUM 142 MMOL/L (135-148)
[2016-11-22 04:55] LABS: BASOPHILS 0.2 %; BASOPHILS ABSOLUTE 0.02 10/3/uL (0.0-0.16); EOSINOPHILS 0.1 %; EOSINOPHILS ABSOLUTE 0.01 10/3/uL (0.0-0.53); HEMATOCRIT 27.5 % (36.0-48.0); HEMOGLOBIN 8.5 g/dL (12.0-16.0); IMMATURE GRANULOCYTES 0.3 %; IMMATURE GRANULOCYTES ABSOLUTE 0.03 10/3/uL (0.0-0.11); LYMPHOCYTES 17.9 %; LYMPHOCYTES ABSOLUTE 2.01 10/3/uL (0.67-4.30); MANUAL DIFF NO %; MEAN CORPUS HGB CONC 30.9 g/dL (32.0-36.0); MEAN CORPUSCULAR HEMOGLOB 25.5 pg (26.0-34.0); MEAN CORPUSCULAR VOLUME 82.6 fL (80-100); MEAN PLATELET VOLUME 10.2 fL (9.2-13.0); MONOCYTES 4.1 %; MONOCYTES ABSOLUTE 0.46 10/3/uL (0.21-1.20); NEUTROPHILS 77.4 %; NEUTROPHILS ABSOLUTE 8.69 10/3/uL (2.02-8.40); PLATELET COUNT 521 10/3/uL (150-400); RBC DISTRIBUTION WIDTH 14.9 % (12.0-16.0); RED CELL COUNT 3.33 10/6/uL (4.0-5.6); WHITE BLOOD CELLS 11.2 10/3/uL (4.5-10.5)
[2016-11-22 05:09] LABS: CALCIUM, SERUM 9.1 MG/DL (8.5-10.4); CHLORIDE, SERUM 105 MMOL/L (96-112); CO2 (CARBON DIOXIDE) 25 MMOL/L (24-34); CREATININE 0.33 MG/DL (0.55-1.02); GFR AFRICAN AMERICAN 165 ML/MIN (>=60); GFR NON AFRICAN AMERICAN 143 ML/MIN (>=60); POTASSIUM, SERUM 3.7 MMOL/L (3.5-5.3); SODIUM, SERUM 140 MMOL/L (135-148)
[2016-11-22 05:12] LABS: BUN (BLOOD UREA NITROGEN) 12 MG/DL (6-23); GLUCOSE, SERUM 155 MG/DL (60-99); PHOSPHORUS, SERUM 4.1 MG/DL (2.5-4.5)
[2016-11-23 05:51] LABS: BASOPHILS 0.3 %; BASOPHILS ABSOLUTE 0.02 10/3/uL (0.0-0.16); EOSINOPHILS 2.1 %; EOSINOPHILS ABSOLUTE 0.17 10/3/uL (0.0-0.53); HEMATOCRIT 26.8 % (36.0-48.0); HEMOGLOBIN 8.2 g/dL (12.0-16.0); IMMATURE GRANULOCYTES 0.3 %; IMMATURE GRANULOCYTES ABSOLUTE 0.02 10/3/uL (0.0-0.11); LYMPHOCYTES ABSOLUTE 1.92 10/3/uL (0.67-4.30); MEAN CORPUS HGB CONC 30.6 g/dL (32.0-36.0); MEAN CORPUSCULAR HEMOGLOB 25.2 pg (26.0-34.0); MEAN CORPUSCULAR VOLUME 82.2 fL (80-100); MEAN PLATELET VOLUME 9.7 fL (9.2-13.0); MONOCYTES 6.4 %; MONOCYTES ABSOLUTE 0.51 10/3/uL (0.21-1.20); NEUTROPHILS 66.9 %; NEUTROPHILS ABSOLUTE 5.35 10/3/uL (2.02-8.40); PLATELET COUNT 460 10/3/uL (150-400); RBC DISTRIBUTION WIDTH 14.9 % (12.0-16.0); RED CELL COUNT 3.26 10/6/uL (4.0-5.6)
[2016-11-23 05:55] LABS: MANUAL DIFF NO %
[2016-11-23 06:03] LABS: CALCIUM, SERUM 8.7 MG/DL (8.5-10.4); CHLORIDE, SERUM 108 MMOL/L (96-112); CO2 (CARBON DIOXIDE) 25 MMOL/L (24-34); CREATININE 0.41 MG/DL (0.55-1.02); GFR AFRICAN AMERICAN 154 ML/MIN (>=60); GFR NON AFRICAN AMERICAN 133 ML/MIN (>=60); PHOSPHORUS, SERUM 4.7 MG/DL (2.5-4.5); POTASSIUM, SERUM 4.3 MMOL/L (3.5-5.3); SODIUM, SERUM 142 MMOL/L (135-148)
[2016-11-23 06:06] LABS: BUN (BLOOD UREA NITROGEN) 8 MG/DL (6-23); GLUCOSE, SERUM 351 MG/DL (60-99)
[2016-11-24 04:58] LABS: BASOPHILS 0.2 %; BASOPHILS ABSOLUTE 0.02 10/3/uL (0.0-0.16); EOSINOPHILS 1.9 %; EOSINOPHILS ABSOLUTE 0.21 10/3/uL (0.0-0.53); HEMATOCRIT 26.8 % (36.0-48.0); HEMOGLOBIN 8.1 g/dL (12.0-16.0); IMMATURE GRANULOCYTES 0.2 %; IMMATURE GRANULOCYTES ABSOLUTE 0.02 10/3/uL (0.0-0.11); LYMPHOCYTES 20.4 %; LYMPHOCYTES ABSOLUTE 2.31 10/3/uL (0.67-4.30); MEAN CORPUS HGB CONC 30.2 g/dL (32.0-36.0); MEAN CORPUSCULAR HEMOGLOB 24.6 pg (26.0-34.0); MEAN CORPUSCULAR VOLUME 81.5 fL (80-100); MEAN PLATELET VOLUME 9.7 fL (9.2-13.0); MONOCYTES 3.4 %; MONOCYTES ABSOLUTE 0.39 10/3/uL (0.21-1.20); NEUTROPHILS 73.9 %; NEUTROPHILS ABSOLUTE 8.39 10/3/uL (2.02-8.40); PLATELET COUNT 455 10/3/uL (150-400); RBC DISTRIBUTION WIDTH 14.8 % (12.0-16.0); RED CELL COUNT 3.29 10/6/uL (4.0-5.6)
[2016-11-24 04:59] LABS: MANUAL DIFF NO %; WHITE BLOOD CELLS 11.3 10/3/uL (4.5-10.5)
[2016-11-24 05:08] LABS: BUN (BLOOD UREA NITROGEN) 10 MG/DL (6-23); CALCIUM, SERUM 8.6 MG/DL (8.5-10.4); CHLORIDE, SERUM 106 MMOL/L (96-112); CO2 (CARBON DIOXIDE) 28 MMOL/L (24-34); CREATININE 0.37 MG/DL (0.55-1.02); GFR AFRICAN AMERICAN 159 ML/MIN (>=60); GFR NON AFRICAN AMERICAN 137 ML/MIN (>=60); PHOSPHORUS, SERUM 3.9 MG/DL (2.5-4.5); POTASSIUM, SERUM 3.9 MMOL/L (3.5-5.3); SODIUM, SERUM 143 MMOL/L (135-148)
[2016-11-24 05:10] LABS: GLUCOSE, SERUM 177 MG/DL (60-99)
[2016-11-25 05:02] LABS: BASOPHILS 0.2 %; BASOPHILS ABSOLUTE 0.02 10/3/uL (0.0-0.16); EOSINOPHILS 2.8 %; EOSINOPHILS ABSOLUTE 0.32 10/3/uL (0.0-0.53); HEMOGLOBIN 8.7 g/dL (12.0-16.0); IMMATURE GRANULOCYTES 0.3 %; IMMATURE GRANULOCYTES ABSOLUTE 0.03 10/3/uL (0.0-0.11); LYMPHOCYTES 28.4 %; MEAN CORPUSCULAR HEMOGLOB 24.6 pg (26.0-34.0); MEAN CORPUSCULAR VOLUME 81.9 fL (80-100); MEAN PLATELET VOLUME 9.8 fL (9.2-13.0); MONOCYTES 5.7 %; MONOCYTES ABSOLUTE 0.64 10/3/uL (0.21-1.20); NEUTROPHILS 62.6 %; NEUTROPHILS ABSOLUTE 7.05 10/3/uL (2.02-8.40); PLATELET COUNT 518 10/3/uL (150-400); RBC DISTRIBUTION WIDTH 14.5 % (12.0-16.0); RED CELL COUNT 3.54 10/6/uL (4.0-5.6); WHITE BLOOD CELLS 11.3 10/3/uL (4.5-10.5)
[2016-11-25 05:05] LABS: MANUAL DIFF NO %
[2016-11-25 05:12] LABS: BUN (BLOOD UREA NITROGEN) 10 MG/DL (6-23); CALCIUM, SERUM 8.9 MG/DL (8.5-10.4); CHLORIDE, SERUM 101 MMOL/L (96-112); CO2 (CARBON DIOXIDE) 29 MMOL/L (24-34); CREATININE 0.52 MG/DL (0.55-1.02); GFR AFRICAN AMERICAN 142 ML/MIN (>=60); GFR NON AFRICAN AMERICAN 123 ML/MIN (>=60); PHOSPHORUS, SERUM 3.3 MG/DL (2.5-4.5); POTASSIUM, SERUM 3.9 MMOL/L (3.5-5.3); SODIUM, SERUM 139 MMOL/L (135-148)
[2016-11-25 05:14] LABS: GLUCOSE, SERUM 299 MG/DL (60-99)
[2016-11-26 04:51] LABS: A/G RATIO 0.9 (0.7-1.9); ALBUMIN 3.2 G/DL (3.5-5.0); ALKALINE PHOSPHATASE 98 U/L (45-117); CALCIUM, SERUM 9.3 MG/DL (8.5-10.4); CHLORIDE, SERUM 102 MMOL/L (96-112); CREATININE 0.38 MG/DL (0.55-1.02); GFR AFRICAN AMERICAN 158 ML/MIN (>=60); GFR NON AFRICAN AMERICAN 136 ML/MIN (>=60); GLOBULIN 3.7 G/DL (2.5-4.1); POTASSIUM, SERUM 4.1 MMOL/L (3.5-5.3); PREALBUMIN 19.5 MG/DL (17.0-43.0); SGOT(AST) 8 U/L (5-40); SGPT(ALT) 12 U/L (5-65); SODIUM, SERUM 143 MMOL/L (135-148); TOTAL PROTEIN 6.9 G/DL (6.0-8.5)
[2016-11-26 04:55] LABS: BUN (BLOOD UREA NITROGEN) 14 MG/DL (6-23); CO2 (CARBON DIOXIDE) 34 MMOL/L (24-34); GLUCOSE, SERUM 224 MG/DL (60-99); TOTAL BILIRUBIN < 0.1 MG/DL (0-1.2)
[2016-11-29 06:37] LABS: BUN (BLOOD UREA NITROGEN) 21 MG/DL (6-23); CALCIUM, SERUM 9.2 MG/DL (8.5-10.4); CHLORIDE, SERUM 102 MMOL/L (96-112); CO2 (CARBON DIOXIDE) 28 MMOL/L (24-34); CREATININE 0.53 MG/DL (0.55-1.02); GFR AFRICAN AMERICAN 142 ML/MIN (>=60); GFR NON AFRICAN AMERICAN 122 ML/MIN (>=60); GLUCOSE, SERUM 262 MG/DL (60-99); POTASSIUM, SERUM 4.4 MMOL/L (3.5-5.3); SODIUM, SERUM 140 MMOL/L (135-148)
[2016-11-29] MEDS ORDERED: CORTEF5 PO (12:36)
[2016-11-29] MEDS ORDERED: NOVOLOG SC ×2 (12:38→12:39)
[2016-11-29] MEDS ORDERED: LOP25 PO (12:40)
[2016-11-29] MEDS ORDERED: TOUJEO SC (12:43)
[2016-11-29] MEDS ORDERED: ZOL100 PO (12:44)
[2016-11-29] MEDS ORDERED: SEROQUEL200 MG PO (12:44)
[2016-11-29] MEDS ORDERED: NORCO1 TA1 PO (12:45)
[2016-11-29] MEDS ORDERED: PROAIR HFA INH (12:46)
== END 2016-11-29 15:54 | disposition home health service (06) | DRG 4 ==
LOC: ER 21:40 → MIC 11-02 00:52 → 7NO 11-26 12:51
PROVIDERS: Hospitalist; Internal Medicine; Internal Medicine Critical Care Medicine; Internal Medicine Pulmonary Disease; Nurse Practitioner Gerontology; Radiology Radiation Oncology
PROC: 02H633Z Insertion of Infusion Device into Right Atrium, Percutaneous Approach (ICD-10-PCS; principal; 2016-11-02)
PROC: 5A1945Z Respiratory Ventilation, 24-96 Consecutive Hours (ICD-10-PCS; 2016-11-02)
PROC: 0BH17EZ Insertion of Endotracheal Airway into Trachea, Via Natural or Artificial Opening (ICD-10-PCS; 2016-11-02)
PROC: 0BH17EZ Insertion of Endotracheal Airway into Trachea, Via Natural or Artificial Opening (ICD-10-PCS; 2016-11-04)
PROC: 5A1945Z Respiratory Ventilation, 24-96 Consecutive Hours (ICD-10-PCS; 2016-11-04)
PROC: 0BH17EZ Insertion of Endotracheal Airway into Trachea, Via Natural or Artificial Opening (ICD-10-PCS; 2016-11-08)
PROC: 5A1945Z Respiratory Ventilation, 24-96 Consecutive Hours (ICD-10-PCS; 2016-11-08)
PROC: 02HV33Z Insertion of Infusion Device into Superior Vena Cava, Percutaneous Approach (ICD-10-PCS; 2016-11-09)
PROC: 4A02X4A Measurement of Cardiac Electrical Activity, Guidance, External Approach (ICD-10-PCS; 2016-11-09)
PROC: 0B110F4 Bypass Trachea to Cutaneous with Tracheostomy Device, Open Approach (ICD-10-PCS; 2016-11-13)
PROC: 0BJ08ZZ Inspection of Tracheobronchial Tree, Via Natural or Artificial Opening Endoscopic (ICD-10-PCS; 2016-11-13)
DX: J96.21 Acute and chronic respiratory failure with hypoxia (principal); J15.212 Pneumonia due to Methicillin resistant Staphylococcus aureus; Z99.11 Dependence on respirator [ventilator] status; E10.42 Type 1 diabetes mellitus with diabetic polyneuropathy; K31.84 Gastroparesis; F11.20 Opioid dependence, uncomplicated; E10.43 Type 1 diabetes mellitus with diabetic autonomic (poly)neuropathy; E10.649 Type 1 diabetes mellitus with hypoglycemia without coma; E27.40 Unspecified adrenocortical insufficiency; E10.65 Type 1 diabetes mellitus with hyperglycemia; J44.9 Chronic obstructive pulmonary disease, unspecified; F17.210 Nicotine dependence, cigarettes, uncomplicated; R06.1 Stridor; G89.4 Chronic pain syndrome; F31.9 Bipolar disorder, unspecified; B18.2 Chronic viral hepatitis C; J38.4 Edema of larynx; E87.6 Hypokalemia; E83.42 Hypomagnesemia; F41.0 Panic disorder [episodic paroxysmal anxiety]; D64.9 Anemia, unspecified; Z91.14 Patient's other noncompliance with medication regimen; Z91.19 Patient's noncompliance with other medical treatment and regimen; Z79.4 Long term (current) use of insulin; Z81.8 Family history of other mental and behavioral disorders
CPT/HCPCS: 31500; 31720; 36569; 36600; 70360; 71010; 74000; 80048; 80053; 80069; 80202; 80305; 80307; 81001; 82330; 82533; 82803; 82805; 82947; 82962; 83540; 83550; 83605; 83735; 84100; 84132; 84134; 84145; 84295; 84703; 85014; 85018; 85025; 85610; 85730; 87040; 87070; 87077; 87086; 87186; 87205; 87641; 92610-GN; 92950; 93005; 94002; 94003; 94640; 94660; 96365; 96375; 97112-GP; 97116-GP; 97162-GP; 99285; A9270-GY; C1751; C1894; C9113; G8978-CK-GP; G8979-CI-GP; G8996-CJ-GN; G8997-CJ-GN; G8998-CJ-GN; J0330; J1630; J1720; J1940; J2250; J2310; J3010; J3370; J3480; P9045

== ENCOUNTER 2016-11-30 08:08 | Inpatient (IN) | payer SELFPAY ==
--- NOTE | ~2016-11-30 | DS ---
Discharge Summary [place] [id number] [facility] [place]. [address] NAME: YUMIKO MILAN : 78 STATUS : DIS IN PAT#: [id number] AGE: 35 ADM/REG DATE : 11/30/16 MR#: [id number] REPORT SERV DATE: 12/05/16 DICTATED BY: BRIAN MARSHALL DATE: 12/04/16 REPORT STATUS : Draft TRANSCRIBED BY: MODL DATE: 12/04/16 ADMISSION DATE: 11/30/2016 DISCHARGE DATE: 12/04/2016 DISCHARGE DIAGNOSES: Hypoxic respiratory failure, resolved. She required intubation and was now extubated, she previously had a tracheotomy. At that time she had noted polysubstance abuse, adrenal insufficiency, bipolar disorder, leukocytosis, infrequent bouts of diabetic ketoacidosis. LABORATORY DATA: Her laboratories today show, sodium 144, potassium 4.1, chloride 105, CO2 is 31, BUN 15, creatinine 0.58, and glucose 308, now down to 109. H and H is 8.3 and 27.9, white count 8500, no shift, platelets 401,000. The chest x-ray is totally clear. Sputum did grow out some MRSA, she was treated with vancomycin, which has been discontinued. HOSPITAL COURSE: The patient is seen by Psychiatry. They found her to be oriented to time, place, and person. She has made herself a do not resuscitate. She reportedly said that she just wanted to get high and she won't do it again, she wants to go home. No further reasons to keep her hospitalized. Being discharged with diagnoses resolved, hypoxic respiratory failure; MRSA pneumonia or bronchitis, improved; polysubstance abuse, benzos, opiates, and cocaine; diabetes mellitus; frequent DKA, insulin-dependent; adrenal insufficiency; and bipolar disorder. MEDICATIONS: 1. Seroquel 200 mg a.m. and 400 mg h.s. 2. Solu-Cortef 35 mg a day. 3. Colace. 4. Levemir with sliding scale of NovoLog. RP/GALILEA Brian Marshall M.D. / [id number] CC: Danita Lentz FNP
--- NOTE | ~2016-11-30 | HP ---
History And Physical [place] [address] [facility] [place]. [address] NAME: YUMIKO PEREYRA : 78 STATUS : [facility] [id number] AGE: 35 ADM/REG DATE : 11/30/16 MR#: [id number] REPORT SERV DATE: 11/30/16 DICTATED BY: APRIL BARROW DATE: 11/30/16 REPORT STATUS : Draft TRANSCRIBED BY: MODL DATE: 11/30/16 DATE OF ADMISSION: 11/30/2016 REASON FOR ADMISSION: Unresponsive. HISTORY OF PRESENT ILLNESS: Ms. Pereyra is an unfortunate, 35-year-old lady, who has type 1 diabetes and has been admitted many times over the last year for recurrent diabetic ketoacidosis. She was actually admitted in early October for DKA but after being found in the bathroom unresponsive. In the emergency department, she was obtunded and required endotracheal intubation and mechanical ventilation with a suspicion of possible surreptitious ingestion in the emergency department after being advised that she may not be admitted. This is all extrapolated from previous records. She was admitted to the MICU, where she remained for most of the month of October after a failing extubation for development of laryngeal stridor. She was ultimately tracheotomized by Dr. Love from ENT and was actually able to be decannulated on 11/24/2016 after being transferred out to the floor. She was discharged home on 11/29/2016 (yesterday) by Pascual Ferguson from Hospital Medicine Service who after discussion this afternoon with me reported that she was in good condition. She was taken home by her family, and was found by them at home unresponsive earlier this morning and EMS was called. Evidently, her oxygen saturation was below 60 upon EMS arrival, and she was intubated with a #6 endotracheal tube and transported back to our facility where she was seen by Dr. Lema. In the ER, a central line was placed, and she was moved back to the intensive care unit for acute hypoxemic respiratory failure under Critical Care Medicine Service. Of note, her drug screen was positive for benzodiazepine, opiate, and cocaine upon collection and the patient who is awake on mechanical ventilation did nod her head yes, so as to signify that she had ingested drugs following hospital discharge yesterday afternoon. PAST MEDICAL HISTORY: Diabetic ketoacidosis episodes with type 1 diabetes mellitus requiring home insulin with which she has been historically fairly noncompliant. Hospitalization for the last month for respiratory failure secondary to laryngeal stridor as above. Chronic pain syndrome with chronic narcotic dependence. Tobacco abuse. PAST SURGICAL HISTORY: Tracheostomy performed in 10/[address] Mc Love. SOCIAL HISTORY: Long-term medical noncompliance, tobacco abuse approximately one pack per day prior to her hospitalization in October, polysubstance abuse including cocaine. FAMILY HISTORY: Noncontributory. REVIEW OF SYSTEMS: Performed and is negative except for those points described above in the history of present illness section of the dictation. ALLERGIES: INCLUDE IODINE AND SHELLFISH. MEDICATIONS: Reviewed based on her discharge medications from yesterday. Please see the MAR for additional details. History And Physical [address] [address] NAME: YUMIKO PEREYRA : [birth year] STATUS : ADM IN [facility]#: [id number] AGE: 35 ADM/REG DATE : 11/30/16 MR#: [id number] REPORT SERV DATE: 11/30/16 DICTATED BY: APRIL BARROW DATE: 11/30/16 REPORT STATUS : Draft TRANSCRIBED BY: GALILEA DATE: 11/30/16 PHYSICAL EXAMINATION: GENERAL: The patient is a female with normal vital signs and in no acute distress. She is calm on a propofol drip at 30 on mechanical ventilation. HEENT: Head is atraumatic and normocephalic. Pupils are equal, round, and reactive to light. Extraocular movements are intact. She is able to track and nod yes or no to questions and follow commands. Ears, nose, and mouth are unremarkable. She has poor oral dentition with an oral endotracheal tube and orogastric tube in place. NECK: Supple with a clean dressing overlying a stoma from her recent tracheostomy. LUNGS: Clear breath sounds bilaterally. HEART: S1, S2. Mildly tachycardic. Brisk cap refill to distal extremities. ABDOMEN: Soft, nontender, and nondistended with no evidence of peritoneal signs. Bowel sounds are present in all four quadrants. : A Miramontes catheter is indwelling and draining translucent yellow urine. EXTREMITIES: Without clubbing, cyanosis, or edema. She moves all four purposefully. LYMPHATICS: Unremarkable. She has no palpable lymphadenopathy. NEUROLOGIC: Grossly intact, although she is drowsy from propofol sedation. PSYCHIATRIC: Unable to assess. DIAGNOSTIC STUDIES: Personal review of diagnostic workup completed in the emergency department today. Her initial ABG showed a pH 7.33, pCO2 49, pO2 of 497. Carboxyhemoglobin 6.7, and oxygen saturation 100% on 100% FiO2. A portable x-ray of the chest was clear, showed no acute processes. Her white blood cell count is 12.1, hemoglobin and hematocrit are mildly depressed at 8.3 and 27.3, (normocytic hypochromic anemia). Platelet count is 486. Metabolic profile is largely unremarkable with a normal renal function, normal electrolytes, mild hyperglycemia of 168 and normal LFTs. Tylenol level, aspirin level, and alcohol level are negative. A drug screen of the urine is positive for benzodiazepines, cocaine, and opiates. Her urinalysis shows glucosuria, positive nitrite, negative leukocyte esterase, and many bacteria. Lower respiratory culture is positive for few gram-positive cocci in chains but few white blood cells. KUB shows mild gaseous distention of the small bowel with NG tube in place. Previous records in both [facility] and [facility] were reviewed. IMPRESSION: 1. Acute hypoxemic respiratory failure following polysubstance ingestion including opiate, cocaine, and benzodiazepines. The opiates and benzodiazepines may be secondary to medications administered prior to her hospital discharge yesterday, but she certainly has not received any cocaine while admitted and did admit to drug ingestion at home. 2. Type 1 diabetes mellitus with mild hyperglycemia without evidence of active diabetic ketoacidosis. 3. Mild leukocytosis likely a leukemoid reaction in the setting of unremarkable respiratory culture and bland urinalysis. 4. Mild hypoalbuminemia likely consistent with protein-calorie malnutrition. 5. Tobacco abuse. 6. Drug abuse. 7. Poor insight into medical conditions. History And Physical [address] [place]. [address] NAME: YUMIKO PEREYRA : [birth year] STATUS : ADM IN [facility]#: [id number] AGE: 35 ADM/REG DATE : 11/30/16 MR#: [id number] REPORT SERV DATE: 11/30/16 DICTATED BY: APRIL BARROW DATE: 11/30/16 REPORT STATUS : Draft TRANSCRIBED BY: MODL DATE: 11/30/16 8. History of recent laryngeal stridor requiring tracheostomy, now decannulated. 9. Normochromic microcytic anemia. 10.Chronic anxiety and depression. 11.History of recent MRSA pneumonia. 12.Relative adrenal insufficiency. 13.Bipolar disorder type 1 with episodes of acute agitation. 14.Chronic obstructive pulmonary disease. All in the setting of noncompliance with outpatient medications in the past. PLAN: Ms. Pereyra has already been reintubated by paramedics and moved to the CCU. She has a triple lumen in place per Dr. Lema, although she is not requiring any hemodynamic support at this point. We will ask Dr. Love to replace her tracheostomy. She was just decannulated and proceed with lightening her sedation and involving Palliative Care and Psychiatry to assist with this difficult situation. We will exclude active infection and resume her home medications via feeding tube. Her family is not available at this point, but we will need to involve them in additional decision making, her sister has been involved in participation, is her decision maker in the past, she is a full code. Heparin for DVT prophylaxis, proton pump inhibitor for stress ulcer prophylaxis, and we will ask registered dietitian to assist with management of her tube feeds. We will make additional adjustments to her regimen as clinically warranted. SEYMOUR/GALILEA April Barrow MD / [id number] CC: Hima Mendoza M.D.
[2016-11-30 07:41] LABS: ALLENS TEST Pos; BE (BASE EXCESS) -1.4 MEQ/L (0 +/- 2.5); CARBOXYHEMOGLOBIN 6.7 % (0-3); DEVICE vent; HCO3 (ACTUAL BICARBONATE) 24.8 MEQ/L (23-27); HEMOBLOGIN CONTENT 8.9 G/DL (12-16); INSTRUMENT SERIAL # 8087; METHEMOGLOBIN 0.2 % (0-3); MODE CMV; OPERATOR ID 14335; PCO2 (CO2 TENSION) 49 MMHG (35-45); PO2 (O2 TENSION) 497 MMHG (79-93); SAMPLE Arterial; TIDAL VOLUME 550 ML; pH 7.33 (7.37-7.43)
[~2016-11-30 08:08] MED LIST changes: +CORTEF5 PO; +LOP25 PO; +NEUR600 PO; +NORCO1 TA1 PO; +SEROQUEL200 MG PO
[2016-11-30 08:19] LABS: BASOPHILS 0.5 %; BASOPHILS ABSOLUTE 0.06 10/3/uL (0.0-0.16); EOSINOPHILS 2.8 %; EOSINOPHILS ABSOLUTE 0.34 10/3/uL (0.0-0.53); ER CBC TAT 0 Hrs 03 Mins; HEMATOCRIT 27.3 % (36.0-48.0); HEMOGLOBIN 8.3 g/dL (12.0-16.0); IMMATURE GRANULOCYTES 0.3 %; IMMATURE GRANULOCYTES ABSOLUTE 0.04 10/3/uL (0.0-0.11); LYMPHOCYTES ABSOLUTE 1.81 10/3/uL (0.67-4.30); MANUAL DIFF NO %; MEAN CORPUS HGB CONC 30.4 g/dL (32.0-36.0); MEAN CORPUSCULAR HEMOGLOB 24.5 pg (26.0-34.0); MEAN CORPUSCULAR VOLUME 80.5 fL (80-100); MEAN PLATELET VOLUME 8.9 fL (9.2-13.0); MONOCYTES 8.4 %; MONOCYTES ABSOLUTE 1.01 10/3/uL (0.21-1.20); NEUTROPHILS ABSOLUTE 8.83 10/3/uL (2.02-8.40); PLATELET COUNT 486 10/3/uL (150-400); RED CELL COUNT 3.39 10/6/uL (4.0-5.6); WHITE BLOOD CELLS 12.1 10/3/uL (4.5-10.5)
[2016-11-30 08:32] LABS: A/G RATIO 0.9 (0.7-1.9); ALBUMIN 3.2 G/DL (3.5-5.0); ALKALINE PHOSPHATASE 94 U/L (45-117); CALCIUM, SERUM 8.4 MG/DL (8.5-10.4); CHLORIDE, SERUM 108 MMOL/L (96-112); CO2 (CARBON DIOXIDE) 28 MMOL/L (24-34); CREATININE 0.54 MG/DL (0.55-1.02); GFR AFRICAN AMERICAN 141 ML/MIN (>=60); GFR NON AFRICAN AMERICAN 121 ML/MIN (>=60); GLOBULIN 3.6 G/DL (2.5-4.1); POTASSIUM, SERUM 3.9 MMOL/L (3.5-5.3); SGOT(AST) 12 U/L (5-40); SGPT(ALT) 22 U/L (5-65); SODIUM, SERUM 145 MMOL/L (135-148); TOTAL BILIRUBIN 0.1 MG/DL (0-1.2); TOTAL PROTEIN 6.8 G/DL (6.0-8.5)
[2016-11-30 08:33] LABS: ACETAMINOPHEN LEVEL (TYLENOL) < 2.0 MCG/ML (10.0-20.0); ALCOHOL < 10 MG/DL (0); BUN (BLOOD UREA NITROGEN) 32 MG/DL (6-23); GLUCOSE, SERUM 168 MG/DL (60-99); SALICYLATE < 1.7 MG/DL (-)
[2016-11-30 09:15] LABS: ASCORBIC ACID (UR NOT ORDER) NEG (NEG); BILIRUBIN, URINE NEGATIVE (NEG); KETONE, URINE NEGATIVE (NEG); LEUKOCYTE ESTERASE(NOT OR NEG (NEG); NITRITE (URINE) POS (NEG); WBC (NOT ORDERED) (RFLEX) 6 (0-5)
[2016-11-30 09:36] LABS: BENZODIAZEPINES (NOT ORD) POS (NEG); PHENCYCLIDINE(PCP) NEG (NEG)
[2016-11-30 09:37] LABS: AMPHETAMINES (NOT ORD) NEG (NEG); BARBITURATES (NOT ORDERED NEG (NEG); CANNABINOIDS (THC) NEG (NEG); COCAINE (NOT ORDERED) POS (NEG); OPIATES POS (NEG); TRICYCLICS NEG (NEG)
[2016-11-30 09:37] LABS: ACETONE NEG
[2016-11-30 13:11] LABS: CK-MB 2.1 NG/ML; CPK 46 U/L (0-200); PHOSPHORUS, SERUM 3.3 MG/DL (2.5-4.5); TROPONIN I 0.03 NG/ML (<0.05)
[2016-11-30 13:13] LABS: PROCALCITONIN <0.05 ng/mL (<0.5)
[2016-11-30 15:24] LABS: PARTIAL THROMBO TIME 23.7 SEC (22.5-37.2)
[2016-11-30 15:26] LABS: PROTIME (NOT ORD) 13.5 SEC (12.0-14.5)
[2016-12-01 04:10] LABS: BASOPHILS 0.6 %; BASOPHILS ABSOLUTE 0.08 10/3/uL (0.0-0.16); EOSINOPHILS 2.2 %; EOSINOPHILS ABSOLUTE 0.31 10/3/uL (0.0-0.53); HEMOGLOBIN 9.1 g/dL (12.0-16.0); IMMATURE GRANULOCYTES 0.3 %; IMMATURE GRANULOCYTES ABSOLUTE 0.04 10/3/uL (0.0-0.11); LYMPHOCYTES 31.5 %; LYMPHOCYTES ABSOLUTE 4.44 10/3/uL (0.67-4.30); MEAN CORPUS HGB CONC 29.4 g/dL (32.0-36.0); MEAN CORPUSCULAR VOLUME 81.8 fL (80-100); MEAN PLATELET VOLUME 9.1 fL (9.2-13.0); MONOCYTES 7.5 %; MONOCYTES ABSOLUTE 1.06 10/3/uL (0.21-1.20); NEUTROPHILS 57.9 %; NEUTROPHILS ABSOLUTE 8.18 10/3/uL (2.02-8.40); RBC DISTRIBUTION WIDTH 15.1 % (12.0-16.0); RED CELL COUNT 3.79 10/6/uL (4.0-5.6); WHITE BLOOD CELLS 14.1 10/3/uL (4.5-10.5)
[2016-12-01 04:11] LABS: MANUAL DIFF NO %; PLATELET COUNT 637 10/3/uL (150-400)
[2016-12-01 04:28] LABS: ALBUMIN 3.3 G/DL (3.5-5.0); CHLORIDE, SERUM 109 MMOL/L (96-112); CO2 (CARBON DIOXIDE) 32 MMOL/L (24-34); CREATININE 0.37 MG/DL (0.55-1.02); GFR AFRICAN AMERICAN 159 ML/MIN (>=60); GFR NON AFRICAN AMERICAN 137 ML/MIN (>=60); PHOSPHORUS, SERUM 3.1 MG/DL (2.5-4.5); POTASSIUM, SERUM 3.3 MMOL/L (3.5-5.3); SODIUM, SERUM 148 MMOL/L (135-148)
[2016-12-01 04:33] LABS: BUN (BLOOD UREA NITROGEN) 19 MG/DL (6-23)
[2016-12-01 04:34] LABS: GLUCOSE, SERUM 46 MG/DL (60-99)
[2016-12-02 04:13] LABS: BASOPHILS 0.4 %; BASOPHILS ABSOLUTE 0.04 10/3/uL (0.0-0.16); EOSINOPHILS 3.7 %; EOSINOPHILS ABSOLUTE 0.37 10/3/uL (0.0-0.53); HEMATOCRIT 28.1 % (36.0-48.0); HEMOGLOBIN 8.3 g/dL (12.0-16.0); IMMATURE GRANULOCYTES 0.2 %; IMMATURE GRANULOCYTES ABSOLUTE 0.02 10/3/uL (0.0-0.11); LYMPHOCYTES 24.2 %; LYMPHOCYTES ABSOLUTE 2.44 10/3/uL (0.67-4.30); MANUAL DIFF NO %; MEAN CORPUS HGB CONC 29.5 g/dL (32.0-36.0); MEAN CORPUSCULAR HEMOGLOB 24.6 pg (26.0-34.0); MEAN CORPUSCULAR VOLUME 83.1 fL (80-100); MONOCYTES ABSOLUTE 0.71 10/3/uL (0.21-1.20); NEUTROPHILS 64.5 %; NEUTROPHILS ABSOLUTE 6.52 10/3/uL (2.02-8.40); PLATELET COUNT 496 10/3/uL (150-400); RBC DISTRIBUTION WIDTH 15.3 % (12.0-16.0); RED CELL COUNT 3.38 10/6/uL (4.0-5.6); WHITE BLOOD CELLS 10.1 10/3/uL (4.5-10.5)
[2016-12-02 04:25] LABS: ALBUMIN 3.1 G/DL (3.5-5.0); CALCIUM, SERUM 9.1 MG/DL (8.5-10.4); CHLORIDE, SERUM 106 MMOL/L (96-112); CO2 (CARBON DIOXIDE) 30 MMOL/L (24-34); GFR AFRICAN AMERICAN 144 ML/MIN (>=60); GFR NON AFRICAN AMERICAN 125 ML/MIN (>=60); POTASSIUM, SERUM 4.1 MMOL/L (3.5-5.3); SODIUM, SERUM 144 MMOL/L (135-148)
[2016-12-02 04:27] LABS: BUN (BLOOD UREA NITROGEN) 24 MG/DL (6-23); GLUCOSE, SERUM 143 MG/DL (60-99); PHOSPHORUS, SERUM 5.1 MG/DL (2.5-4.5)
[2016-12-03 04:55] LABS: BASOPHILS 0.5 %; BASOPHILS ABSOLUTE 0.05 10/3/uL (0.0-0.16); EOSINOPHILS 3.8 %; EOSINOPHILS ABSOLUTE 0.35 10/3/uL (0.0-0.53); HEMOGLOBIN 7.4 g/dL (12.0-16.0); IMMATURE GRANULOCYTES 0.2 %; IMMATURE GRANULOCYTES ABSOLUTE 0.02 10/3/uL (0.0-0.11); LYMPHOCYTES 19.4 %; LYMPHOCYTES ABSOLUTE 1.79 10/3/uL (0.67-4.30); MEAN CORPUS HGB CONC 29.5 g/dL (32.0-36.0); MEAN CORPUSCULAR HEMOGLOB 24.5 pg (26.0-34.0); MEAN CORPUSCULAR VOLUME 83.1 fL (80-100); MEAN PLATELET VOLUME 9.2 fL (9.2-13.0); MONOCYTES 4.2 %; MONOCYTES ABSOLUTE 0.39 10/3/uL (0.21-1.20); NEUTROPHILS 71.9 %; NEUTROPHILS ABSOLUTE 6.65 10/3/uL (2.02-8.40); PLATELET COUNT 378 10/3/uL (150-400); RBC DISTRIBUTION WIDTH 15.2 % (12.0-16.0); RED CELL COUNT 3.02 10/6/uL (4.0-5.6); WHITE BLOOD CELLS 9.3 10/3/uL (4.5-10.5)
[2016-12-03 04:57] LABS: HEMATOCRIT 25.1 % (36.0-48.0); MANUAL DIFF NO %
[2016-12-03 05:02] LABS: ALBUMIN 2.8 G/DL (3.5-5.0); CALCIUM, SERUM 8.7 MG/DL (8.5-10.4); CHLORIDE, SERUM 108 MMOL/L (96-112); CO2 (CARBON DIOXIDE) 31 MMOL/L (24-34); CREATININE 0.37 MG/DL (0.55-1.02); GFR AFRICAN AMERICAN 159 ML/MIN (>=60); GFR NON AFRICAN AMERICAN 137 ML/MIN (>=60); POTASSIUM, SERUM 3.8 MMOL/L (3.5-5.3); SODIUM, SERUM 146 MMOL/L (135-148)
[2016-12-03 05:04] LABS: BUN (BLOOD UREA NITROGEN) 18 MG/DL (6-23)
[2016-12-03 05:05] LABS: GLUCOSE, SERUM 114 MG/DL (60-99); PHOSPHORUS, SERUM 3.4 MG/DL (2.5-4.5)
[2016-12-04 05:11] LABS: BASOPHILS 0.5 %; BASOPHILS ABSOLUTE 0.04 10/3/uL (0.0-0.16); EOSINOPHILS 1.5 %; EOSINOPHILS ABSOLUTE 0.13 10/3/uL (0.0-0.53); HEMOGLOBIN 8.3 g/dL (12.0-16.0); IMMATURE GRANULOCYTES 0.1 %; IMMATURE GRANULOCYTES ABSOLUTE 0.01 10/3/uL (0.0-0.11); LYMPHOCYTES 17.6 %; LYMPHOCYTES ABSOLUTE 1.49 10/3/uL (0.67-4.30); MEAN CORPUS HGB CONC 29.7 g/dL (32.0-36.0); MEAN CORPUSCULAR HEMOGLOB 24.1 pg (26.0-34.0); MEAN CORPUSCULAR VOLUME 81.1 fL (80-100); MEAN PLATELET VOLUME 8.9 fL (9.2-13.0); MONOCYTES ABSOLUTE 0.42 10/3/uL (0.21-1.20); NEUTROPHILS 75.3 %; NEUTROPHILS ABSOLUTE 6.36 10/3/uL (2.02-8.40); PLATELET COUNT 411 10/3/uL (150-400); RED CELL COUNT 3.44 10/6/uL (4.0-5.6); WHITE BLOOD CELLS 8.5 10/3/uL (4.5-10.5)
[2016-12-04 05:12] LABS: HEMATOCRIT 27.9 % (36.0-48.0); MANUAL DIFF NO %
[2016-12-04 05:28] LABS: A/G RATIO 0.8 (0.7-1.9); ALBUMIN 3.1 G/DL (3.5-5.0); ALKALINE PHOSPHATASE 99 U/L (45-117); BUN (BLOOD UREA NITROGEN) 15 MG/DL (6-23); CALCIUM, SERUM 8.6 MG/DL (8.5-10.4); CHLORIDE, SERUM 105 MMOL/L (96-112); CO2 (CARBON DIOXIDE) 31 MMOL/L (24-34); CREATININE 0.58 MG/DL (0.55-1.02); GFR AFRICAN AMERICAN 137 ML/MIN (>=60); GFR NON AFRICAN AMERICAN 119 ML/MIN (>=60); GLOBULIN 3.9 G/DL (2.5-4.1); PHOSPHORUS, SERUM 2.7 MG/DL (2.5-4.5); POTASSIUM, SERUM 4.1 MMOL/L (3.5-5.3); SGOT(AST) 13 U/L (5-40); SGPT(ALT) 19 U/L (5-65); SODIUM, SERUM 144 MMOL/L (135-148); TOTAL BILIRUBIN 0.2 MG/DL (0-1.2)
[2016-12-04 05:30] LABS: GLUCOSE, SERUM 383 MG/DL (60-99)
== END 2016-12-04 14:54 | disposition home or self-care (01) | DRG 208 ==
LOC: ER 08:08 → CCU 08:56
PROVIDERS: Emergency Medicine; Internal Medicine Critical Care Medicine
PROC: 5A1945Z Respiratory Ventilation, 24-96 Consecutive Hours (ICD-10-PCS; principal; 2016-11-30)
PROC: 05HM33Z Insertion of Infusion Device into Right Internal Jugular Vein, Percutaneous Approach (ICD-10-PCS; 2016-11-30)
DX: J96.21 Acute and chronic respiratory failure with hypoxia (principal); J15.212 Pneumonia due to Methicillin resistant Staphylococcus aureus; E46 Unspecified protein-calorie malnutrition; Z93.0 Tracheostomy status; E10.69 Type 1 diabetes mellitus with other specified complication; J44.9 Chronic obstructive pulmonary disease, unspecified; E27.40 Unspecified adrenocortical insufficiency; F31.2 Bipolar disorder, current episode manic severe with psychotic features; F19.20 Other psychoactive substance dependence, uncomplicated; Z51.5 Encounter for palliative care; Z66 Do not resuscitate; E10.65 Type 1 diabetes mellitus with hyperglycemia; F17.220 Nicotine dependence, chewing tobacco, uncomplicated; F19.10 Other psychoactive substance abuse, uncomplicated; F41.9 Anxiety disorder, unspecified; F32.9 Major depressive disorder, single episode, unspecified; D64.9 Anemia, unspecified; E88.09 Other disorders of plasma-protein metabolism, not elsewhere classified; Z91.14 Patient's other noncompliance with medication regimen
CPT/HCPCS: 31720; 36600; 71010; 74000; 80053; 80069; 80202; 80305; 80307; 81001; 82009; 82550; 82553; 82805; 82962; 83735; 84100; 84132; 84134; 84145; 84484; 85025; 85610; 85730; 87040; 87070; 87077; 87186; 87205; 87641; 93005; 94002; 94003; 94640; 94660; 94770; 96365; 96366; 99285; A9270-GY; C9113; J1720; J3010; J3370

== ENCOUNTER 2016-12-05 01:00 | Emergency (ER) | payer SELFPAY | END 2016-12-05 01:16 | disposition E | LOC: ER 01:00 | DX: I46.9 Cardiac arrest, cause unspecified (principal); I10 Essential (primary) hypertension; K21.9 Gastro-esophageal reflux disease without esophagitis; Z91.013 Allergy to seafood; Z88.8 Allergy status to other drugs, medicaments and biological substances; Z79.899 Other long term (current) drug therapy; Z79.4 Long term (current) use of insulin | CPT/HCPCS: 31500; 92950; 99285; C1894 ==